=== PATIENT | female | born 1960 | race Caucasian/White ===

== ENCOUNTER 2025-06-15 13:26 | Outpatient (AMB) | payer OTHER, SELFPAY ==
--- NOTE | 2025-06-15 13:28 | A.OFFVIS_ITS ---
Intake Visit Reasons: follow up Allergies cefotetan Allergy (Unknown, Verified 06/15/25 13:33) Unknown Penicillins Allergy (Unknown, Verified 06/15/25 13:33) Unknown piperacillin Allergy (Unknown, Verified 06/15/25 13:33) Unknown sulfamethoxazole (From Bactrim) Allergy (Unknown, Verified 06/15/25 13:33) Unknown trimethoprim (From Bactrim) Allergy (Unknown, Verified 06/15/25 13:33) Unknown Medication List - Last Reconciled 06/15/25 by Erinn Mehta, SAKSHI alprazolam 0.5 mg PO duloxetine 60 mg PO DAILY gabapentin 100 mg PO BID gabapentin 600 mg PO BEDTIME levothyroxine 137 mcg PO DAILY nortriptyline 50 mg PO BEDTIME primidone 50 mg PO BID 90 days HPI Comments Details: She was concerned that cognition was not as sharp. She started to notice some decline around 2019, but has worsened over the last 9 months. She lives alone in apartment. In the last few months, there have been times when she left the stove on, left the oven on, left the faucet on, and left her car running. She also feels like her gait is more off lately and notices that she lists from one side to another, but no falls. 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 No work performance issues noted, but will sometimes forget what someone says and needs them to repeat. She started using CPAP few months ago, sleep okay. Some anxiety, and may be more anxious related to memory concerns. Tremor was okay with primidone, can be worse when anxious. No functional impairment. No difficulty eating, drinking, or swallowing. Has not used alcohol since 11/2017. She has bachelor's degree in social work. She has family history of dementia in maternal aunt, and both paternal grandparents. Both her parents passed in early 60s. She has history of heavy alcohol use, stopped in 11/2017. She has a 20+ year history of tremors in her hands that had slowly gotten worse beginning around 2018 and were causing some functional impairment in eating, typing, and writing. There is no family history of tremor. If she is really worked up and nervous it is worse. She has some mild movements and trouble getting words out. Her symptoms increase with stress and caffeine. She has stopped all caffeine intake. She sleeps about 7 hours a day. Around 2016, she was seen in [place] and prescribed propranolol for a short period of time, dose unknown but, did not see any benefit. [facility] Medical History (Updated 06/15/25 @ 13:51 by Erinn Mehta CNP) Fibromyalgia Hypothyroidism PTSD (post-traumatic stress disorder) Depression Anxiety Benign essential tremor Family History (Updated 06/15/25 @ 13:52 by Erinn Mehta CNP) Maternal Aunt Dementia Paternal Grandfather Dementia Paternal Grandmother Dementia Review of Systems Const Denies chills, Denies daytime sleepiness, Denies difficulty sleeping, Denies fatigue, Denies fever(s), Denies frequent falls, Reports headache(s), Denies increased appetite, Denies poor appetite, Denies snoring, Denies weakness, Denies weight gain and Denies weight loss Eyes Denies loss of vision ENT Denies vertigo, Denies dizziness, Reports headache(s) and Denies neck pain Card Denies chest pain at rest, Denies chest pain with activity, Denies syncope, Denies leg edema, Reports palpitations, Denies dyspnea and Denies dyspnea on exertion Resp Denies cough, Denies dyspnea, Denies dyspnea on exertion and Denies snoring GI Denies abdominal pain, Denies constipation, Reports heartburn, Denies diarrhea and Denies nausea Denies urinary frequency, Denies urinary incontinence and Denies urinary urgency Musc Denies abnormal gait, Denies back pain, Denies myalgias, Denies arthralgias, Denies neck pain, Denies numbness and Denies tingling Neuro Denies abnormal gait, Denies vertigo, Denies dizziness, Denies syncope, Denies frequent falls, Reports headache(s), Denies lack of coordination, Denies loss of vision, Denies memory loss, Denies numbness, Denies Other visual disturbances, Denies restless legs, Denies seizure-like activity, Denies tingling, Denies paresthesias, Reports tremor(s) and Denies weakness Psych Reports anxiety, Denies depression, Denies auditory hallucinations, Denies memory loss and Denies visual hallucinations Endo Denies fatigue and Reports palpitations Physical Exam Const Other: General Appearance:? normal, in no acute distress. Heart:? S1, S2 normal, no murmurs. Lungs:? clear anteriorly and posteriorly. Musculoskeletal:? normal. Extremities:? no edema. Psych:? alert, as below. Neuro Other: Abnormal Neurological Findings:?Minimal tremor of the extended upper extremities mildly increased on FTN. MMSE 26/30 Mental Status: alert, as below. Cranial Nerves: Pupils are equal, round, and reactive to light. External ocular muscles are intact. Visual reece are full, no ptosis. Face is symmetrical, no facial weakness or droop. Facial sensations are normal. Tongue protrudes in midline. Palate elevates symmetrically. Shoulder shrugging is normal Motor Examination: Normal muscle tone, bulk and strength. No atrophy or fasciculations. No drift of the extended upper extremities. DTR 2+. Plantars are flexor. Sensory Exam: Normal light touch, temperature, pinprick, vibration, and joint- position sensations. Rhomberg sign is absent. Coordination: No ataxia. No titubation. Gait Exam: Within normal limits. Cerebellar Signs: Nzhruk-fi-hthe as above. Extrapyramidal System: Tremor as above. No rigidity with normal facial expressions. No bradykinesia. No bradyphrenia. Normal arm swing and posture. No propulsion or retropulsion. Speech: Normal. MMSE Level of Consciousness: Alert. Orientation: Knows correct year, month, date, day and season. Knows correct city, county and state. Knows correct location and floor. Registration: Able to register 3 objects. Attention: Serial 7's performed accurately to 79. Recall: Able to recall 1 out of 3 objects. Language: Normal spontaneous speech, fluency, repetition, naming, comprehension, reading, and writing. Total Score: 26/30. Results Reviewed Results Reviewed: Labs 05/2025 with PCP: TSH 0.32, RPR negative Labs 04/2025 with PCP: Vitamin B 12 and folate ok Assessment & Plan Assessment & Plan (1) Benign essential tremor: Code(s): G25.0 - Essential tremor Category: Medical Plan: Continue primidone 50mg 1 tablet twice a day. (2) MCI (mild cognitive impairment): Code(s): G31.84 - Mild cognitive impairment of uncertain or unknown etiology Category: Medical Plan: She had copy of recent labs done by PCP with her which were reviewed - vitamin B12 and folate were okay, TSH was low and levothyroxine dose was adjusted. She was interested in newer treatment available IV anti-amyloid treatment (Kisunla) if she was appropriate candidate for this treatment, at which time further education risks and benefits of medication will be discussed. Additional testing reviewed, and she was agreeable. * Cognitive testing (with MMSE and MoCA) - will schedule for later this week * Labs (TSH, vitamin B12 and folate, ABeta 42/40) * MRI brain ordered * PET brain beta amyloid ordered * EEG was also ordered Discussed option to start memantine, will hold off for now. Orders: Orders MR head/brain w con Today G3.84 - Mild cognitive impairment of uncertain or unknown etiology EEG Routine Today G3.84 - Mild cognitive impairment of uncertain or unknown etiology Vitamin B12 and Folate Today G3.84 - Mild cognitive impairment of uncertain or unknown etiology TSH reflex Free T4 Today G3.84 - Mild cognitive impairment of uncertain or unknown etiology ABeta 42/40 p-tau 217 Eval Today G3.84 - Mild cognitive impairment of uncertain or unknown etiology PET Brain beta amyloid Today Medications: Refilled primidone 50 mg PO BID 180 tabs 1RF 90 days Coding Level of Care Code Est Pt Level 4 (06346) Diagnoses Benign essential tremor G25.0 MCI (mild cognitive impairment) G3184
--- OUTSIDE RECORDS SUMMARY | 2025-06-15 22:11 | XMS_ITS | Encounter Summary ---
Author Organization [employer] Address [address] [facility] [address] [place] [address] Care Team Providers Care Test Evaluator Name Role Phone Myrna Sarmiento COMMERCIAL DIRECTOR Unavailable [phone] Juan M Haynes Primary Care Provider [phone] Encounter Details Date Type Department Care Team (Latest Contact Info) Description 04/17/2025 Results Follow-Up [facility] [address] [place] [phone] Adi Kelley AGNP [address] [place] [address] Iron, TIBC And Ferritin Panel, Comprehensive Metabolic Panel, CBC, Additional followed-up results: 2 Social History Tobacco Use Types Packs/Day Years Used Date Smoking Tobacco: Former Cigarettes 2 10 1 8 - 1987 Cigars Started: 02/26 24 Passive Smoke Exposure: Never Smokeless Tobacco: Never Alcohol Use Standard Drinks/Week Comments Never 0 (1 standard drink = 0.6 oz pure alcohol) hx/o etoh abuse, sober since 2019 Alcohol Answer Date Recorded How often do you have a drink containing alcohol ? 0 09/06/2023 How many drinks containing a lcohol do you have on a typical day when you are drinking? 0 09/06/2023 How often do you have six or more drinks on one occasion? 0 09/06/2023 Depression Answer Date Recorded Patient Health Questionnaire-9 Score 4 12/06/2023 Patient Health Questionnaire-9 Score 4 12/06/2023 Last PHQ-9: Questionnaire Data Not on file 0 12/06/2023 Housing Stability Answer Date Recorded What is your housing situation today? I have mickey collado 12/06/[address] you li ve. Do you have problems with any of the following? None of the above 12/06/2023 Food Insecurity Answer Date Recorded Within the past 12 months, y ou worried that your food would run out before you got money to buy more: Sometimes True 2024 Within the past 12 months,th e food you bought just didn't last and you didn't have enough money to get more: Never True 11/04/2024 Transportation Answer Date Recorded In the past 12 months, has l ack of transportation kept you from medical appts, meetings, work or from getting things needed for daily living? No 12/06/2023 Intimate Partner Violence Answer Date R ecorded Within the last year, have y ou been afraid of your partner or ex-partner? 2 09/06/2023 Within the last year, have y ou been humiliated or emotionally abused in other ways by your partner or ex-partner? 2 Within the last year, have y ou been kicked, hit, slapped, or otherwise physically hurt by your partner or ex-partner? 2 09/06/2023 Within the last year, have y ou been raped or forced to have any kind of sexual activity by your partner or ex-partner? 2 09/06/2023 Utilities Answer Date Recorded In the past 12 months, has t he electric, gas, oil or water company threatened to shut off services in your home? 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
--- OUTSIDE RECORDS SUMMARY | 2025-06-15 22:11 | XMS_ITS | Encounter Summary ---
Author Organization [employer] Address [address] [facility] [address] [place] [address] Care Team Providers Care Group Controller Name Role Phone SarmientoMyrna desai VISITING NURSE Unavailable [phone] Juan M Haynes Primary Care Provider [phone] Encounter Details Date Type Department Care Team (Late st Contact Info) Description 11/25/2024 Orders Only [facility] [address] [place] [address] Provider, Not In System Social History Tobacco Use Types Packs/Day Years Used Date Smoking Tobacco: Former Cigarettes 2 10 1 978 - 1987 Passive Smoke Exposure: Never Smokeless Tobacco: Never [...] the past 12 months, has t he [employer], gas, oil or water [employer] threatened to shut off services in your [...] 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 Not on file Not on file documented as of this encounter Plan of Treatment Not on file documented as of this encounter Procedures Procedure Name Priority Date/Time Associated Diagnosis Comments MAMMOGRAPHY Routine 11/21/2024 9:30 AM EDT documented in this encounter Results * Hm Mammography (11/21/2024 9:30 AM EDT) Anatomical Region Laterality Modality Other us Not In System Provider HEALTH MAINTENANCE Edited Result - Final documented in this encounter Visit Diagnoses Not on filedocumented in this encounter Additional Health Concerns Assessment Noted Time PHQ-9 Depression Total Score: 4 12/06/19 24 2:09 PM EDT documented as of this encounter Care Teams Group Controller Relationship Specialty Start Date End Date Juan M Haynes PA [address] [place] [address] PCP - General Family Medicine 09/04/22 Myrna Sarmiento FNP [address] [place] [address] Family Medicine 05/05/22 documented as of this encounter
--- OUTSIDE RECORDS SUMMARY | 2025-06-15 22:11 | XMS_ITS | Encounter Summary ---
Author Organization [employer] Address [address] [facility] [address] [place] [address] Care Team Providers Care Insurance Territory Manager Name Role Phone SarmientoMyrna desai YOGA INSTRUCTOR Unavailable [phone] Juan M Haynes Primary Care Provider [phone] Encounter Details Date Type Department Care Team (Late st Contact Info) Description 10/28/2024 Orders Only [facility] [address] [place] [address] Provider, Not In System Social History Tobacco [...] before you got money to buy more: Never True 12/06/2023 Within the past 12 months,th e food you bought just didn't last and you didn't have enough money to get more: Never True Transportation Answer Date Recorded In the past [...] the past 12 months, has t he [employer], gas, oil or water [employer] threatened to shut off services in your home? 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 Not on file Not on file documented as of this encounter Plan of Treatment Not on file documented as of this encounter Procedures Procedure Name Priority Date/Time Associated Diagnosis Comments BI MAMMOGRAM SCREENING TOMOSYNTHESIS BILATERAL Routine 11/21/2024 12:55 PM EDT PULMONARY FUNCTION TESTING Routine 10/16/2024 3:06 PM EDT documented in this encounter Results * BI Mammogram Screening Tomosynthesis Bilateral (11/21/2024 12:55 PM EDT) Anatomical Region Laterality Modality Breast Bilateral Mammography 11/21/2024 12:5 5 PM EDT Narrative 11/24/2024 5:42 PM EDT PROCEDURE: MM Digital Mammo Screening INDICATION: Screening. No known abnormalities. COMPARISON: Multiple priors TECHNIQUE: Full-field digital CC and MLO views of both breasts were obtained. Computer-aided detection (CAD) was utilized in the interpretation of this study. Bilateral tomosynthesis views were obtained. DENSITY: There are scattered areas of fibroglandular density. FINDINGS: No suspicious masses, suspicious microcalcifications, or areas of architectural distortion to suggest malignancy. IMPRESSION: No mammographic evidence of malignancy. RECOMMENDATION: Annual mammographic screening BI-RADS: 2 (Benign) Lay letter mailed to patient WSN: [id number] Ordering Physician: Juan M Haynes Dictated By: Jessica Bernard MD Dictated Date/Time: 11/24/24 5:38 pm Reviewed By: Jessica Bernard MD Signed By: Jessica Bernard MD Signed Date/Time: 11/24/24 5:38 pm Transcribed By: JEANNINE Learning Development Specialist Date/Time: 11/24/24 5:35 pm Birads: Procedure Note Wili, Image - 11/24/2024 PROCEDURE: MM Digital Mammo Screening INDICATION: Screening. No known abnormalities. COMPARISON: Multiple priors TECHNIQUE: Full-field digital CC and MLO views of both breasts wereobtained. Computer-aided detection (CAD) was utilized in the interpretation of thisstudy. Bilateral tomosynthesis views were obtained. DENSITY: There are scattered areas of fibroglandular density. FINDINGS: No suspicious masses, suspicious microcalcifications, or areasof architectural distortion to suggest malignancy. IMPRESSION: No mammographic evidence of malignancy. RECOMMENDATION: Annual mammographic screening BI-RADS: 2 (Benign) Lay letter mailed to patient WSN: [id number] Ordering Physician: Juan M Haynes Dictated By: Jessica Bernard MD Dictated Date/Time: 11/24/24 5:38 pm Reviewed By: Jessica Bernard MD Signed By: Marco Antonio MD, Lopez Cassandra Signed Date/Time: 11/24/24 5:38 pm Transcribed By: CSB Learning Development Specialist Date/Time: 11/24/24 5:35 pm Birads: us Juan M MORRISON IMG BI PROCEDURES Final Result * Pulmonary function testing (10/16/2024 3:06 PM EDT) us Not In System Provider PFT ORDERABLES Edited Re sult - Final documented in this encounter Visit Diagnoses Not on filedocumented in this encounter Additional Health Concerns Assessment Noted Time PHQ-9 Depression Total Score: 4 12/06/19 24 2:09 PM EDT documented as of this encounter Care Teams Insurance Territory Manager Relationship Specialty Start Date End Date Juan M Haynes PA [address] [place] [address] PCP - General Family Medicine 09/04/22 Myrna Sarmiento FNP [address] [place] [id number] Family Medicine 05/05/22 documented as of this encounter
--- OUTSIDE RECORDS SUMMARY | 2025-06-15 22:11 | XMS_ITS | Clinical Summary ---
Author Organization [facility] Address [facility] [place] [address] Care Team Providers Care Peanut Roaster Name Role Phone Unknown Primary Care Provider Unavailabl e Allergies Active Allergy Reactions Criticality Noted Date Comments Cefotetan Hives High 05/29/2012 CIS - RASH Cefotetan Disodium High CIS - rash (unspecified) Cis Free Text Allergy PIP/TAZO-RASH. Cis Free Text Allergy TOLERATINE MORPHINE. Garlic Low CIS - Hives Gloves, Latex High Latex Rash High 05/29/2012 Latex Dams High Morphine Piperacillin Piperacillin Sodium High CIS - Rash, peticea Piperazine (Bulk) Hives High 05/29/2012 Sulfamethoxazole-Trimethopr im Itching,Rash 11/21/2013 Other reaction(s): other Tazobactam Tazobactam Sodium High CIS - Rash, peticea Medications MULTIVITAMIN (DAILY MULTIPLE ORAL) 6 Active cyanocobalamin (VITAMIN B-12) 500 mcg tablet 6 Active ibuprofen (ADVIL;MOTRIN) 800 mg tablet 800mg, PO, Three times daily,PRN 6 Active Lactobacillus Acidophilus 1 billion cell Tablet Take 2 tablets by mouth daily. Active ferrous gluconate (FERGON) 324 mg (38 mg iron) Tablet Take 1 tablet by mouth Daily. 8 Active Calcium Carbonate 600 mg calcium (1,500 mg) Tablet Take 2 tablets by mouth daily. Active clobetasol (TEMOVATE) 0.05 % Cream Apply topically 2 times daily. 30 g 1 8 Active Additional Information Patient not taking.Reported on 05/15/2018 sertraline (ZOLOFT) 50 mg Tablet Take 1 tablet by mouth daily. 90 tablet 3 8 Active DULoxetine (CYMBALTA) 60 mg Capsule, Delayed Release(E.C.)Ind ications:Fibromy algia TAKE ONE CAPSULE BY MOUTH DAILY 90 capsule 1 8 Active nortriptyline (PAMELOR) 10 mg CapsuleIndicatio ns:Fibromyalgia TAKE ONE CAPSULE BY MOUTH EVERY NIGHT AT BEDTIME 90 capsule 3 8 Active ALPRAZolam (XANAX) 0.5 mg TabletIndication s:Anxiety Take 1 tablet by mouth every 8 hours as needed. 30 tablet 8 Active levothyroxine (SYNTHROID) 150 mcg TabletIndication s:Hypothyroidism , unspecified type TAKE ONE TABLET BY MOUTH EVERY DAY 90 tablet 9 Active atenolol (TENORMIN) 50 mg TabletIndication s:Hypertension, unspecified type TAKE ONE-HALF TABLET BY MOUTH TWICE DAILY 90 tablet 9 Active gabapentin (NEURONTIN) 300 mg Capsule TAKE 1 CAPSULE BY MOUTH AT BEDTIME 90 capsule 9 Active Active Problems Problem Noted Date Diagnosed Date Essential hypertension 2017 Fibromyalgia 2017 Hypothyroidism 2017 Malabsorption syndrome 2017 Prediabetes 2017 Exfoliative dermatitis 02/19/2017 Anxiety 11/03/2016 Esophageal reflux 06/22/2015 Insomnia 02/12/2015 Breast cancer screening, high risk patient 06/18 Overview (07/26/2017): Comments: danial chen version 7 lifetime risk 22.6% Incisional hernia 07/02/2011 Hearing loss 09/07/2010 Dyshidrosis 01/11/2009 Resolved Problems Problem Noted Date Diagnosed Date Resolved Date Dysuria 11/01/2017 05/15/2018 Immunizations Immunization Administration Dates Next Due Hepatitis B Adult (Engerix-B , Recombivax) 04/01/1997,10/28/1996,09/26/1996 Influenza (Novel [id number]) Injectable 05/11/2009 Influenza Quadrivalent, Pres ervative Free 03/29/2018 Influenza Unspecified Formulation 2016,04/26/2015,05/09/2014,2012,04/20/2011,03/23/2010,03/23/2009,1 07/12/2001 Td Adult (Decavac, Tenivac) 03/29/2018 Tdap (Adacel, Boostrix) 02/25/2008 Tuberculin Skin Test, PPD 03/09/1997 Family History Medical History Relation Comments Breast Cancer Mother Relation Status Comments Mother Social History Tobacco Use Types Packs/Day Years Used Date Smoking Tobacco: Former Cigarettes Q uit: 02/28/1988 Smokeless Tobacco: Never Alcohol Use Standard Drinks/Week Comments Yes 0 (1 standard drink = 0.6 oz pur e alcohol) ocassional Comments No Sex and Gender Information Value Date Recorded Sex Assigned at Not on file Legal Sex Female 6:17 AM EST Gender Identity Not on file Sexual Orientation Not on file Last Filed Vital Signs Vital Sign Reading Time Taken Comments Blood Pressure 130/88 05/15/2018 3:23 PM EST Pulse 56 05/15/2018 3:23 PM EST Temperature 35.8 C (96.5 F) 05/15/2018 3:23 PM EST Respiratory Rate 16 03/10/2014 2:23 PM EDT Oxygen Saturation 97% 05/15/2018 3:23 PM EST Inhaled Oxygen Concentration - - Weight 109.3 kg (241 lb) 03/29/2018 4:48 PM EDT Height 162.6 cm (5' 4 ) 11/06/2017 2:56 PM EDT Body Mass Index 41.37 11/06/2017 2:56 PM EDT Plan of Treatment Health Maintenance Due Date Last Done Comments CT Colonography 1962 FIT DNA 1962 FIT 1962 Sigmoidoscopy (10 year) with FIT yearly 1962 Sigmoidoscopy 1962 HIV screen 1980 Hepatitis C Screening 1980 Lipid Screening 1980 HPV test 1992 Breast Cancer Share Decision Needed 2002 Pneumoccocal Vaccine: 50+ (1 of 1 - PCV) 2012 Zoster vaccine (1 of 2) 2012 Pre-DM monitoring (HgbA1C or FBG) 08/04/2017 08/04/2016, 08/04/2016, 10/04/2015, Additional history exists Breast Cancer screening 08/10/2019 08/10/19 18, 07/24/2016, 06/22/2015, Additional history exists PAP Smear 06/22/2020 06/22/2015, 04/20/2011 Covid-19 Vaccine (1 - 2024-2 6 season) 2025 Influenza (Flu) vaccine (1 o f 1 - Influenza standard series) 03/09/2025 03/29/2018, 04/27/2017, 04/26/2015, Additional history exists Colonoscopy 09/19/2025 09/20/2015 Colorectal Cancer Screening 09/19/2025 Tetanus/Diphtheria/Pertussis Vaccines (3 - Td or Tdap) 03/29/2028 03/29/2018, 02/25/2008 Procedures Procedure Name Priority Date/Time Associated Diagnosis Comments MAMMO SCREENING CAD AND KEO BILATERAL Routine 08/10/2017 12:19 PM EST Encounter for breast cancer screening other than mammogram CMP (LUCIA CONVERSION) Routine 08/04/2016 3:57 PM EST EXTERNAL COLONOSCOPY RESULT Routine 09/20/2015 9:00 AM EDT EXTERNAL PAP SMEAR RESULT PANEL Routine 06/22/2015 2:22 PM EST from Last 3 Months or Most Recently Relevant to Health Maintenance Results * Mammo Screen CAD and Keo Bilat (Generic) (08/10/2017 12:19 PM EST) Anatomical Region Laterality Modality Breast Bilateral Mammography Impressions 08/10/2017 4:44 PM EST Normal mammogram. No evidence for malignancy. Routine mammographic screening is recommended. BIRADS Category 1: Negative Narrative 08/10/2017 4:44 PM EST EXAMINATION: MAMMO DIGITAL BILATERAL SCREENING WITH CAD AND TOMOSYNTHESIS CLINICAL HISTORY: routine TECHNIQUE: CC and MLO projections as well as tomography were reviewed. The films were also reviewed with the [employer] Computer Aided Detection System (Version 10.0). COMPARISON: None FINDINGS: The breasts are symmetric in size and are of predominately fatty density. I see no suspicious masses or microcalcifications to suggest malignancy. us Brook Monahan MD IMG MAMMO ORDERABLES Final Res ult * (ABNORMAL) CMP (Lucia conversion) (08/04/2016 3:57 PM EST) Est Glomerular Filtration Rate >60(Exte rnal Lab) ml/min/1.73m2 [facility] Comment: Sourced from [employer] Conversion Albumin 4.1(Exte rnal Lab) 3.5 - 5.2 g/dl [facility] Comment: Sourced from [employer] Conversion Alkaline Phosphatase 66(Exter nal Lab) 35 - 104 international units per liter [facility] Comment: Sourced from Lucia Duck Conversion Alanine Aminotransferase 17(Exter nal Lab) <33 international units per liter [facility] Comment: Sourced from [employer] Conversion Aspartate Aminotransferase 17(Exter nal Lab) <32 international units per liter [facility] Comment: Sourced from [employer] Conversion Blood Urea Nitrogen 20(Exter nal Lab) 6 - 20 mg/dl [facility] Comment: Sourced from Lucia Duck Conversion Calcium 9.4(Exte rnal Lab) 8.6 - 10.2 mg/dl [facility] Comment: Sourced from [employer] Duck Conversion CKD Stage NL, 1or2(Ext ernal Lab) [facility] Comment: Sourced from [employer] Conversion Chloride 98(Exter nal Lab) 98 - 107 mmol/L [facility] Comment: Sourced from Lucia Duck Conversion Carbon Dioxide 28(Exter nal Lab) 21 - 32 mmol/L [facility] Comment: Sourced from Lucia Nabila Conversion Creatinine 0.6(EXTE RNAL/ABN ) 0.7 - 1.2 mg/dl [facility] Comment: Sourced from Lucia Duck Conversion Anion Gap 14(Exter nal Lab) 8 - 16 mmol/L [facility] Comment: Sourced from [employer] Conversion Glucose Fasting 96(Exter nal Lab) 70 - 100 mg/dl [facility] Comment: Sourced from [employer] Conversion Potassium 4.3(Exte rnal Lab) 3.3 - 5.1 mmol/L [facility] Comment: Sourced from [employer] Conversion Sodium 140(Exte rnal Lab) 136 - 145 mmol/L [facility] Comment: Sourced from [employer] Conversion Bilirubin, Total 0.2(Exte rnal Lab) <1.2 mg/dl [facility] Comment: Sourced from [employer]abil[employer] Conversion Protein, Total 6.6(Exte rnal Lab) 6.6 - 8.7 g/dl [facility] Comment: Sourced from [employer] Conversion 08/04/2016 3:57 PM EST us His Nabila Provider CHEMISTRY ORDERABLES Final Result Performing Organization Address [facility] Co de Phone Number [facility] * (ABNORMAL) External Colonoscopy (09/20/2015 9:00 AM EDT) External Colonoscopy 09/20/2015 9:00:00 AM - See Meta[employer] system for full report(Externa l Lab) [facility] Comment:Sourced from [employer] [employer] Duck Conversion 09/20/2015 9:00 AM EDT us His Nabila Provider EXTERNAL GI PROCEDURE RESU LT Final Result Performing Organization Address [facility]/ZIP Co de Phone Number [facility] RESULT CONVERSION * (ABNORMAL) External Pap Smear (06/22/2015 2:22 PM EST) External PAP Smear 06/22/2015 2:22:00 PM; See Metaforic system for full report(Externa l Lab) [facility] Comment: Sourced from [employer] Conversion 06/22/2015 2:22 PM EST us His Nabila Provider EXTERNAL LAB ORDERABLES Fi nal Result Performing Organization Address City/[facility]/ZIP Co de Phone Number [facility] RESULT CONVERSION from Last 3 Months or Most Recently Relevant to Health Maintenance Insurance MVP Advance Directives Documents on File Type Date 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
--- OUTSIDE RECORDS SUMMARY | 2025-06-15 22:11 | XMS_ITS | Encounter Summary ---
Author Organization [employer] Address [address] [place] [address] Care Team Providers Care Lisw Name Role Phone Myrna Sarmiento ASE MASTER MECHANIC Unavailable [phone] Juan M Haynes Primary Care Provider [phone] Reason for Visit * Reason Comments Med Change Request Encounter Details Date Type Department Care Team ([facility] Contact Info) Description 05/06/[address] [facility] [address] [place] [address] Laureen Perez NP [address] [place], [place] [id number] Social History Tobacco Use Types Packs/Day Years Used Date Smoking Tobacco: Former Cigarettes 2 1987 Cigars Started: 02/26 24 Passive Smoke [...] is your housing situation today? 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 Not on file Not on file documented as of this encounter Miscellaneous Notes * Telephone Encounter - Indu Membreno [place] - 05/18/2025 9:19 AM EST Not covered by insurance documented in this encounter Plan of Treatment Not on file documented as of this encounter Visit Diagnoses Not on filedocumented in this encounter Additional Health Concerns Assessment Noted Time PHQ-9 Depression Total Score: 4 12/06/19 24 2:09 PM EDT documented as of this encounter Care Teams Lisw Relationship Specialty Start Date End Date Juan M Haynes PA [address] [place] [address] PCP - General Family Medicine 09/04/22 Myrna Sarmiento FNP [address] [place] [address] Family Medicine 05/05/22 documented as of this encounter
--- OUTSIDE RECORDS SUMMARY | 2025-06-15 22:11 | XMS_ITS | Encounter Summary ---
Author Organization [employer] Address [address] [facility] [address] [place] [address] Care Team Providers Care Team Assembly Line Machine Operator Name Role Phone Myrna Sarmiento [facility] Unavailable [phone] Juan M Haynes Primary Care Provider [phone] Encounter Details Date Type Department Care Team (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
--- OUTSIDE RECORDS SUMMARY | 2025-06-15 22:11 | XMS_ITS | Encounter Summary ---
Author Organization [employer] Address [address] [facility] [address] [place] [address] Care Team Providers Care Channel Executive Name Role Phone Myrna Sarmiento [facility] Unavailable [phone] Juan M Haynes Primary Care Provider [phone] Reason for Visit * Reason Onset Date Comments Med Refill 06/14/2025 Encounter Details Date Type Department Care Team (Late st Contact Info) Description 06/13/2025 Refill [facility][1] [address] [place] [phone] Uyen Tolbert [facility] [address] [place], [place] [phone] Anxiety Social History Tobacco Use Types Packs/Day Years Used Date Smoking Tobacco: Former Cigarettes 2 10 1 978 - 1987 Cigars Started: 02/26 24 Passive [...] your housing situation today? 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 Comments: documented in this encounter Plan of Treatment Not on file documented as of this encounter Visit Diagnoses Diagnosis Anxiety Anxiety state, unspecified documented in this encounter Additional Health Concerns Assessment Noted Time PHQ-9 Depression Total Score: 4 12/06/19 24 2:09 PM EDT documented as of this encounter Care Teams Channel Executive Relationship Specialty Start Date End Date Juan M Haynes PA [address] [place] [address] PCP - General Family Medicine 09/04/22 Myrna Sarmiento FNP [address] [place] [address] Family Medicine 05/05/22 documented as of this encounter
--- OUTSIDE RECORDS SUMMARY | 2025-06-15 22:11 | XMS_ITS | Clinical Summary ---
Author Organization [employer] Address [address] [place] [address] Care Team Providers Care Rubber Compounder Name Role Phone Myrna Sarmiento OBSERVATION NURSE Unavailable [phone] Juan M Haynes Primary Care Provider [phone] Allergies Active Allergy Reactions Criticality Noted Date Comments Cefotetan Anaphylaxis,Hives,Ra s h High 05/29/2012 Other reaction(s): Anaphelaxis CIS - rash (unspecified) CIS - RASH Garlic Hives Medium 02/04/2019 CIS - Hives Latex High 09/04/2022 Morphine 04/02/2023 Piperacillin Anaphylaxis High 09/16/2018 CIS - Rash, peticea Piperacillin-Tazobactam In Dex 09/16/2018 Piperazine Hives High 05/29/2012 Sulfamethoxazole-Trimet hoprim Hives,Itching,Rash Medium 11/21/2013 Other reaction(s): other Tazobactam High 04/02/2023 CIS - Rash, peticea Medications * This document contains information received from the source organization and may not represent a complete record from that organization. Lactobacillus (Acidophilus Probiotic) 10 MG capsule in the morning. 02/05/20 19 Active primidone (Mysoline) 50 MG tablet 11/06/19 24 Active docusate sodium (Colace) 100 MG capsule Take 1 capsule (100 mg) by mouth 2 times daily. 180 capsule 3 03/27/20 25 Active DULoxetine (Cymbalta) [address] capsuleIndicat ions:Fibromyal diana Take 1 capsule (60 mg) by mouth Once per day. Do not crush or chew. 90 capsule 3 03/27/20 25 2025 Active gabapentin (Neurontin) 100 MG capsuleIndicat ions:Fibromyal diana TAKE ONE CAPSULE BY MOUTH EVERY MORNING AND IN THE AFTERNOON. 180 capsule 03/27/20 Active nortriptyline (Pamelor) 50 MG capsuleIndicat ions:Fibromyal diana Take 1 capsule (50 mg) by mouth at bedtime. 90 capsule 3 03/27/20 25 2025 Active omeprazole (PriLOSEC) [address] capsuleIndicat ions:Gastroeso phageal reflux disease without esophagitis Take 1 capsule (40 mg) by mouth before breakfast. 90 capsule 3 04/02/20 Active ALPRAZolam (Xanax) 0.5 MG tabletIndicati ons:Anxiety Take 1 tablet (0.5 mg) by mouth if needed in the morning and at bedtime for anxiety. 56 tablet 05/06/20 Active fluticasone (Flonase) 50 MCG/ACT nasal sprayIndicatio ns:Allergic rhinitis, unspecified seasonality, unspecified trigger Administer 1 spray into each nostril 2 times daily. Shake gently. Before first use, prime pump. After use, clean tip and replace cap. 16 g 2 05/06/20 Active Estrogens Conjugated 0.625 MG/GM cream See Instructions, apply a marble sized amount of cream twice weekly sunday and sunday to vaginal opening, # 30 Gm, 3 Refills, Maintenance, 04/15/25 4:48:00 PM EDT, [facility]/pharmacy #[id number], Partial fill upon patient request if the prescription is for a schedule II opioid drug., apply a marble sized amount of cream twice weekly sunday and sunday to vaginal opening, 163, cm, 04/15/25 16:13:00 EDT, Height, 93, kg, 04/15/25 16:13:00 EDT, Dry Weight 04/15/20 Active levothyroxine (Synthroid, Levoxyl) 137 MCG tabletIndicati ons:Hypothyroi dism, unspecified type Take 137 mcg by mouth before breakfast. 30 tablet 2 05/29/20 Active gabapentin (Neurontin) 300 MG capsuleIndicat ions:Anxiety Take 2 capsules (600 mg) by mouth at bedtime. 180 capsule 06/15/20 25 2025 Active gabapentin (Neurontin) 300 MG capsuleIndicat ions:Anxiety Take 2 capsules (600 mg) by mouth at bedtime. 180 capsule 03/18/20 25 2024 Discontinued(R eorder (will not trigger notification to Pharmacy)) levothyroxine (Synthroid, Levoxyl) 150 MCG tablet TAKE 1 TABLET BY MOUTH EVERY DAY IN THE MORNING ON AN EMPTY STOMACH 90 tablet 3 03/27/20 25 2024 Discontinued(R eorder (will not trigger notification to Pharmacy)) doxycycline (Vibra-Tabs) 100 MG tabletIndicati ons:Cutaneous abscess of buttock Take 1 tablet (100 mg) by mouth 2 times daily for 7 days. Take with a full glass of water and do not lie down for at least 30 minutes after. 14 tablet 05/13/20 25 2024 Active Problems Problem Noted Date Diagnosed Date PATEL (obstructive sleep apnea) 11/04/2024 Assessment & Plan (03/30/2025 7:43 AM EDT): PATEL managed with CPAP at night, no longer requiring supplemental oxygen. Improvement in alertness and reduction in brain fog since using CPAP. - Continue CPAP therapy at night. Monitor for ongoing fatigue. Assessment & Plan (11/04/2024 11:28 AM EDT): 10/2024 HST with moderate PATEL w/ hypoxia. Pt already in contact with Dr. Jaeger and awaiting machine to begin treatment. Continue to monitor. Hx of acute respiratory failure 08/28/2024 Assessment & Plan (09/04/2024 2:01 PM EST): Hx/o acute respiratory failure. Pt remains in stable condition. Continue nocturnal O2 therapy. Attend sleep med appt 09/24. F/u pulmonology on 10/07. Continue to monitor. Assessment & Plan (08/28/2024 12:46 PM EST): 64F overall clinically well now 6 days s/p hospital admission 08/16/24 - 08/22/24 for acute hypoxic respiratory failure secondary to suspected pneumonia. Persistent SANCHES and nocturnal desaturation though reassuringly unremarkable exam today. Referral to respiratory therapy to help with acute recovery. F/u pulmonology as planned on 10/07/24. Sleep med 11/17/24 - will call and advocate for sooner appt due to refractory desat despite nocturnal O2 therapy. In interim continue 3L nocturnal O2 an close monitoring. Repeat CXR in 4-6 weeks; order placed. F/u in 1 week. Abnormal chest x-ray 08/28/2024 Skin lesion of face 09/06/2023 Assessment & Plan (09/06/2023 5:43 PM EST): 63F with skin lesion of face, appears most consistent with benign cyst, referring for further eval/ management. Tremor of hands and face 09/06/2023 Assessment & Plan (12/06/2023 2:31 PM EDT): Clinically improving with primidone. Continue to follow with specialist and continue to monitor. Assessment & Plan (09/06/2023 5:43 PM EST): 63F with chronic progressive bilateral intention tremor of hands and mouth twitching. Neuro referral placed for further eval/ management. Iron deficiency 10/18/2022 Assessment & Plan (03/30/2025 7:43 AM EDT): Iron deficiency under management with daily iron and vitamin C supplementation. Hematology follow-up scheduled for April. - Continue iron and vitamin C supplementation. Open orders for iron levels, blood count, B12, and folic acid; advised to complete labs at convenience. Results to be shared with hematology. Assessment & Plan (05/09/2024 10:07 AM EDT): Ongoing iron deficiency and chronic fatigue unresponsive to p.o. replenishment. Will consult with MDs in our practice to clarify process for ordering IV iron and then follow-up with patient. Assessment & Plan (12/06/2023 2:31 PM EDT): Stable. Follow up with hematology as planned and continue to monitor. Assessment & Plan (09/06/2023 5:42 PM EST): 63F with hx/o gastric bypass with chronic fe-deficiency refractory to PO supplementation. Hematology referral placed to eval for consideration of IV iron. Assessment & Plan (10/18/2022 9:35 AM EDT): Continue with iron supplementation. Repeat labs prior to next visit. She is up-to-date on colon cancer screening with next colonoscopy due in 2025. Refer sooner if no resolution of anemia despite supplementation or development of any signs/symptoms of GI blood loss. Vitamin D deficiency 07/22/2019 Atrial fibrillation (CMS/HCC) 02/06/2019 Overview (01/31/2023): One episode in 20's, had been on atenolol ever since, no recurrent episodes. Had repeat eval by cardiology in 2022- echo, event monitor, ekg, all reassuring, only finding was rare brief PSVT's. Shared decision between pt and cardiology to dc atenolol and f/u prn basis. Continue to monitor. Assessment & Plan (09/05/2022 8:03 PM EST): Stable. Asymptomatic and clinically well-appearing. Upcoming appt with cardiology to discuss whether BB still necessary. Fibromyalgia 2017 Assessment & Plan (05/26/2025 7:11 AM EST): Fibromyalgia is the likely umbrella cause for ongoing fatigue, pain, gait instability, and anxiety. Symptoms refractory to current regimen of nortriptyline, duloxetine, and gabapentin. Medication side effects and uncontrolled anxiety may contribute to symptom burden. - Discussed possibility of adjusting medication regimen, including switching gabapentin to pregabalin or increasing nortriptyline dose. Offered referral to psychiatric prescriber for medication review and anxiety management. Patient elected to defer medication changes and psychiatric consult at this time. Continue current regimen. Advised to document symptoms for future reference. Assessment & Plan (03/30/2025 7:43 AM EDT): Fibromyalgia managed with duloxetine, gabapentin, and nortriptyline. Symptoms have increased slightly in recent months but remain manageable. - Continue duloxetine 60 mg, gabapentin (300 mg at bedtime and 100 mg twice daily), and nortriptyline 50 mg. Monitor symptom control and report if symptoms become unmanageable. Orders: DULoxetine (Cymbalta) [address] capsule; Take 1 capsule (60 mg) by mouth Once per day. Do not crush or chew. gabapentin (Neurontin) 100 MG capsule; TAKE ONE CAPSULE BY MOUTH EVERY MORNING AND IN THE AFTERNOON. nortriptyline (Pamelor) 50 MG capsule; Take 1 capsule (50 mg) by mouth at bedtime. Assessment & Plan (09/06/2023 5:41 PM EST): Stable. Clinically benefiting from current med regimen, taking as prescribed and tolerating well with no side effects. Continue as is and will continue to monitor. Assessment & Plan (05/18/2023 5:07 PM EST): Significant symptomatic improvement with addition of 100 mg gabapentin doses each morning and afternoon (in addition to 600 mg nightly dose). Continue current regimen and continue to monitor. Return again for follow-up in 3 months or sooner as needed. Assessment & Plan (04/02/2023 10:22 AM EDT): Adding gabapentin 100 mg each morning and afternoon for hopeful benefit towards anxiety. continue gabapentin 600 mg nightly. Follow-up again in 6 months on effect/tolerability and continue dose titration as needed. Assessment & Plan (01/31/2023 1:39 PM EDT): Some refractory symptoms of anxiety, depression, insomnia, w/ possible relation to fibromyalgia. Increasing nortriptyline to 50mg via shared decision-making for hopeful multiple benefits. F/u again in 6 wks to monitor effect/tolerability. Assessment & Plan (10/18/2022 9:34 AM EDT): Excellent effect from nortriptyline increased to 25 mg, tolerating well with no adverse effects. Continue to monitor. Hypothyroidism 2017 Assessment & Plan (05/26/2025 7:11 AM EST): Hypothyroidism may contribute to fatigue and cold intolerance. Thyroid function to be reassessed to ensure appropriate levothyroxine dosing. - Ordered thyroid function tests. Orders: TSH with Reflex to Free T4; Future Assessment & Plan (03/30/2025 7:43 AM EDT): Hypothyroidism managed with levothyroxine 150 mcg. TSH checked 7 months ago and was normal. - Continue levothyroxine 150 mcg daily. Assessment & Plan (01/31/2023 1:39 PM EDT): Due for repeat monitoring labs. Obtain and dose-adjust med if needed. Malabsorption syndrome 2017 Overview (09/04/2022): S/p jeremy-en-y gastric bypass in 2000 Assessment & Plan (09/05/2022 8:13 PM EST): Stable. Continue supplementation. Repeating monitoring labs. Anxiety 11/03/2016 Assessment & Plan (03/30/2025 7:43 AM EDT): Stable anxiety disorder. Clinically benefiting from current med regimen that includes alprazolam 0.5mg up to bid prn, taking as prescribed and tolerating well with no side effects. No reason to suspect misuse/diversion at this time. Obtained updated drug screen today. Assessment & Plan (11/04/2024 11:28 AM EDT): Stable anxiety disorder. Clinically benefiting from current med regimen that includes alprazolam 0.5mg up to bid prn, taking as prescribed and tolerating well with no side effects. No reason to suspect misuse/diversion at this time. Obtained updated drug screen and med contract today. Assessment & Plan (05/09/2024 10:07 AM EDT): Stable. Clinically benefiting from current med regimen that includes alprazolam 0.5mg up to bid prn, taking as prescribed and tolerating well with no side effects. No reason to suspect misuse/diversion or that patient is being misleading despite negative drug screens. Obtaining additional today and will follow-up with results. Assessment & Plan (03/21/2024 11:28 AM EDT): Stable. Clinically benefiting from current med regimen that includes alprazolam 0.5mg up to bid prn, taking as prescribed and tolerating well with no side effects. Continue as is and will continue to monitor. Obtained updated tox screen today. No concern for misuse/diversion at this time. Assessment & Plan (12/06/2023 2:31 PM EDT): Stable. Clinically benefiting from current med regimen, taking as prescribed and tolerating well with no side effects. Continue as is and will continue to monitor. Obtain updated tox screen at next visit in 3 months. Assessment & Plan (09/06/2023 5:43 PM EST): Stable. Clinically benefiting from current med regimen, taking as prescribed and tolerating well with no side effects. Continue as is and will continue to monitor. Obtained updated med contract and tox screen today. Assessment & Plan (04/02/2023 10:22 AM EDT): Clinically benefiting from current med regimen, taking as prescribed and tolerating well with no side effects. Adding additional gabapentin doses as noted above. Otherwise we will continue current regimen. Follow-up again in 6 weeks. Continue behavioral therapy. Assessment & Plan (02/17/2023 1:55 AM EDT): Continue nortriptyline 50mg. Increasing frequency of use of xanax from 0.5mg daily prn to BID prn given current situational acute stressors and the need for further symptom control - sent 7 day supply given technically new controlled substance script. Pt to call or portal in when nearing end of supply to provide report on effect/tolerability. If well-tolerated and good effect then can refill 28d supply at that time. Will see her back for f/u appt in 4-6 wks. Assessment & Plan (01/31/2023 1:41 PM EDT): Some refractory symptoms off atenolol. Increasing nortriptyline as noted above and placed BH referral for possible family therapy. Otherwise continue same med regimen. Obtained repeat tox screen today for xanax use - no concern for misuse/diversion at this time. Pt taking appropriately as prescribed. Assessment & Plan (10/18/2022 9:35 AM EDT): Stable on nortriptyline 25 mg, duloxetine 60 mg, and Xanax. Tolerated sertraline discontinuation well. Benefiting from current med regimen with no adverse effects. Will return in 3 months for regular follow-up and repeat tox screen. Assessment & Plan (09/05/2022 8:06 PM EST): Refilled xanax and obtained updated med contract. Will obtain tox screen at future visit. No concerns for misuse/diversion at this time. Downtitrating sertraline to discontinuation (next 50mg for 2 wks) and increasing nortriptyline (from 10mg to 25mg) via shared decision-making for waning efficacy of sertraline and potential for improved efficacy w/ increased dose of nortriptyline towards anxiety, fibromyalgia, and insomnia. Reviewed anticholinergic s/e profile w/ monitoring precautions provided. Gastroesophageal reflux disease without esophagi tis 06/22/2015 Assessment & Plan (03/30/2025 7:43 AM EDT): GERD managed with omeprazole 40 mg twice daily. famotidine discontinued due to lack of efficacy. - Continue omeprazole 40 mg twice daily. Discontinued famotidine. Use Pepto- Bismol as needed for breakthrough symptoms. Orders: omeprazole (PriLOSEC) [address] capsule; Take 1 capsule (40 mg) by mouth before breakfast and before evening meal. Do not crush or chew. Assessment & Plan (09/04/2024 2:00 PM EST): Stable refractory GERD on omeprazole 40mg BID. Continue famotidine 20mg up to BID prn. Continue to monitor. Assessment & Plan (08/28/2024 12:38 PM EST): 2 days of intermittent burning chest sensation most likely GERD or pleurodynia related to recent respiratory infection. Considered ACS though reassuringly normal EKG today and feature not quite consistent. Will closely monitor and try famotidine 20mg up to BID prn. Assessment & Plan (09/06/2023 5:41 PM EST): Stable on omeprazole 40mg BID. Continue as is and continue to monitor. Assessment & Plan (01/31/2023 1:35 PM EDT): 62F with hx/o jeremy-en-y with refractory GERD sxs despite on omeprazole 40mg BID - referral placed to GI for specialist evaluation. Assessment & Plan (10/18/2022 9:34 AM EDT): Increasing omeprazole from 20 mg to 40 mg via shared decision making. We will follow-up at future visit in 3 months continue to monitor. If still refractory symptoms then switch to twice daily dosing and/or consider GI referral for endoscopy. Also refer with the development of any new red flag symptoms. Assessment & Plan (09/05/2022 8:09 PM EST): No red flags. Restarting PPI. Will continue to monitor. Insomnia 02/12/2015 Resolved Problems Problem Noted Date Diagnosed Date Resolved Date Prediabetes 2017 09/05/2022 Encounters Date Type Department Care Team Description 06/13/[address] [phone] Uyen Tolbert FNP Anxiety 06/01/[address] [phone] Juan M Haynes PA 05/29/2025 2:40 PM EST Clinical Support [address] [phone] Valerie Queen LPN Short-term memory loss (Primary Dx); Encounter for screening and preventative care [Z00.00] 05/29/2025 Results Follow-Up [address] [phone] Juan M Haynes PA TSH with Reflex to Free T4, HIV-1/2 Antigen and Antibodies, Fourth Generation, with Reflexes, RPR (Monitor) with Reflex to Titer, T4, Free 05/25/2025 3:40 PM EST Office Visit [address] [phone] Juan M Haynes PA Fibromyalgia (Primary Dx); Hypothyroidism, unspecified type; Encntr screen for infections w sexl mode of transmiss; Short-term memory loss 05/13/2025 3:40 PM EST Office Visit [address] [phone] Micheline Zarate FNP Cutaneous abscess of buttock (Primary Dx) 05/13/[address] [place] [address] Juan M Haynes PA 05/06/[address] [phone] Laureen Perez NP 05/05/[address] [phone] Adi Kelley AGNP 05/05/[address] [phone] Uyen Tolbert FNP Anxiety 04/17/2025 Results Follow-Up [address] [phone] Adi Kelley AGNP Iron, TIBC And Ferritin Panel, Comprehensive Metabolic Panel, CBC, Additional followed-up results: 2 03/27/2025 4:00 PM EDT Office Visit [address] [phone] Juan M Haynes PA Annual physical exam (Primary Dx); PATEL (obstructive sleep apnea); Iron deficiency; Fibromyalgia; Gastroesophageal reflux disease without esophagitis; Hypothyroidism, unspecified type; Anxiety; Encounter for immunization; Encounter for long-term (current) use of medications 03/27/[address] [phone] Juan M Haynes PA Gastroesophageal reflux disease without esophagitis 03/18/[address] [phone] Juan M Haynes PA Anxiety 03/16/[address] [phone] Juan M Haynes PA Anxiety from Last 3 Months Immunizations Immunization Administration Dates Next Due Hep B, Unspecified 04/01/1997,10/28/1996, 997 Influenza, IIV3, injectable 04/29/2023 Influenza, Unspecified 03/29/2019,2017,04/27/2017,2014,05/09/2014,04/08/2013,04/20/2011,0 03/23/2010,03/23/2009,05/12/2002 Influenza, seasonal, injecta ble, preservative free 03/27/2025,03/21/2024 Moderna Covid-19 Vaccine 12+ 03/27/2025,03/21/20 24,1962 Novel [id number], all formulations 05/11/2009 PPD Test 03/09/1997 Pfizer Covid-19 Vaccine 12+ 06/16/2021,,07/05/2020 Pneumococcal Conjugate PCV 20 11/04/2024 Td (adult), 5 Lf tetanus tox oid, preservative free, adsorbed 03/29/2018 Tdap 02/25/2008 Zoster, Recombinant 10/08/2018 Family History Medical History Relation Name Comments No Known Problems Daughter Prostate cancer Father Heart attack Maternal Grandfather Dementia Maternal Grandmother Breast cancer Mother Emphysema Mother Dementia Paternal Grandfather Dementia Paternal Grandmother Diabetes Sister Stroke Neg Hx Relation Name Status Comments Daughter Father Maternal Grandfather Maternal Grandmother Mother Paternal Grandfather Paternal Grandmother Sister Social History Tobacco Use Types Packs/Day Years Used Date Smoking Tobacco: Former Cigarettes 2 10 1 8 - 1987 Cigars Started: 02/26 24 Passive Smoke Exposure: Never Smokeless Tobacco: Never Tobacco Cessation:Counseling Given: Yes Alcohol Use Standard Drinks/Week Comments Never 0 (1 standard drink = 0.6 oz pure alcohol) hx/o etoh abuse, sober since 2018 Alcohol Answer Date Recorded How often do [...] your housing situation today? 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 Not on file Not on file Last Filed Vital Signs Vital Sign Reading Time Taken Comments Blood Pressure 107/72 05/25/2025 3:31 PM EST Pulse 95 05/25/2025 3:31 PM EST Temperature 36.2 C (97.2 F) 12/16/2024 11:21 AM EDT Respiratory Rate - - Oxygen Saturation 90% 05/25/2025 3:31 PM EST Inhaled Oxygen Concentration - - Weight 93.9 kg (207 lb) 03/27/2025 4:09 PM EDT Height 160.7 cm (5' 3.27 ) 09/06/2023 3:58 PM ES T Body Mass Index 36.36 09/06/2023 3:58 PM EST Plan of Treatment Health Maintenance Due Date Last Done Comments CT Colonography 1962 FIT DNA/Cologuard 1962 FIT 1962 FOBT 1960 Sigmoidoscopy 1960 Disability Screening 1962 Alcohol/Substance Use Screening 11/04/2025 11/04/2024 Depression Screening 11/04/2025 11/04/2024, 12/06/19 24 SDOH Screening 11/04/2025 11/04/2024 Mammogram 11/21/2025 11/21/2024, 11/06, 11/09/2023, Additional history exists Colonoscopy 12/17/2025 12/17/2020 Colorectal Cancer Screening 12/17/2025 Tobacco Screening 05/26/2026 05/26/2025 Cervical Cancer Screening 05/25/2027 HPV/Cotest 05/25/2027 05/25/2022 Pap Smear 05/25/2027 05/25/2022, 05/25/2022 DTaP/Tdap/Td Vaccines (3 - Td or Tdap) 03/29/2028 03/29/2018, 02/25/2008 Lipid Panel 04/02/2029 04/02/2024, 08/09, 09/04/2022, Additional history exists RSV Patients and Patients Aged 60 years or older (1 - 1-dose 75+ series) 2037 Hepatitis B Vaccines Completed 04/01/1997, 10/28/1996, 09/26/1996 Hepatitis C Screening Completed 09/04/2022 Pneumococcal Vaccine: 50+ Years Completed 11/04/2024 COVID-19 Vaccine Completed 03/27/2025, , 04/29/2023, Additional history exists Influenza Vaccine Completed 03/27/2025, , 04/29/2023, Additional history exists Zoster Vaccines Completed 03/30/2025, 10/08/2018 HIV Screening Completed 05/25/2025, 07/18/2019 HIB Vaccines Aged Out No longer eligi ble based on patient's age to complete this topic HPV Vaccines Aged Out No longer eligi ble based on patient's age to complete this topic Hepatitis A Vaccines Aged Out No long er eligible based on patient's age to complete this topic IPV Vaccines Aged Out No longer eligi ble based on patient's age to complete this topic Meningococcal B Vaccine Aged Out No l onger eligible based on patient's age to complete this topic Meningococcal Vaccine Aged Out No lan andrzej eligible based on patient's age to complete this topic RSV under 20 months Aged Out No longe r eligible based on patient's age to complete this topic Rotavirus Vaccines Aged Out No longer eligible based on patient's age to complete this topic Procedures Procedure Name Priority Date/Time Associated Diagnosis Comments T4, FREE Routine 05/25/2025 4:18 PM EST RPR (MONITOR) W/REFL TITER Routine 05/25/2025 4:18 PM EST Encntr screen for infections w sexl mode of transmiss HIV 1/2 ANTIGEN/ANTIBODY, FOURTH GENERATION W/RFL Routine 05/25/2025 4:18 PM EST Encntr screen for infections w sexl mode of transmiss TSH W/REFLEX TO FT4 Routine 05/25/2025 4 :18 PM EST Hypothyroidism, unspecified type FOLATE, SERUM Routine 04/14/2025 8:47 AM EDT History of anemia VITAMIN B12 Routine 04/14/2025 8:47 AM EDT History of anemia CBC Routine 04/14/2025 8:47 AM EDT History of anemia COMPREHENSIVE METABOLIC PANEL Routine 04/14/2025 8:47 AM EDT History of anemia IRON, TIBC AND FERRITIN PANEL Routine 04/14/2025 8:47 AM EDT History of anemia DRUG TOX MONITORING 1, W/CONF, ORAL FLUID Routine 03/27/2025 4:38 PM EDT Encounter for long-term (current) use of medications BI MAMMOGRAM SCREENING TOMOSYNTHESIS BILATERAL Routine 11/21/2024 12:55 PM EDT LIPID PANEL WITH REFLEX TO DIRECT LDL Routine 04/02/2024 1:38 PM EDT Malabsorption syndrome HEPATITIS C AB W/REFLEX TO HCV QUANT NAAT IF POSITIVE Routine 09/04/2022 3:59 PM EST HM PAP/HPV Routine 05/25/2022 HM PAP/HPV Routine 05/25/2022 COLONOSCOPY Routine 12/17/2020 12:00 AM EDT from Last 3 Months or Most Recently Relevant to Health Maintenance Results * (ABNORMAL) TSH with Reflex to Free T4 (05/25/2025 4:18 PM EST) TSH w/Reflex to FT4 0.32(L) 0.40 - 4.50 mIU/L [facility] Blood Venous blood specimen / Unknown 05/25/2025 4:18 PM EST 05/25/2025 4:18 PM EST Narrative [facility] - 05/26/2025 7:46 PM EST FASTING:NO FASTING: NO Juan M MORRISON LAB BLOOD ORDERABLES Final Resul t Performing Organization Address City/[facility]/ZIP Co de Phone Number [facility] [address], [place] [address] [email or web address] [place] [facility] 200 [place] [address] * RPR (Monitor) with Reflex to??Titer (05/25/2025 4:18 PM EST) RPR (Monitor) w/Refl Titer NON-REACT CORY NON-REACT CORY [facility] [place] [facility] Blood Venous blood specimen / Unknown 05/25/2025 4:18 PM EST 05/25/2025 4:18 PM EST Narrative [facility] - 05/26/2025 7:46 PM EST FASTING:NO FASTING: NO Juan M MORRISON LAB BLOOD ORDERABLES Final Resul t Performing Organization Address [facility] Co de Phone Number [email or web address] [address] [place] [address], [place] [address] [email or web address] [place] [facility] [address] [place] [phone] * HIV-1/2 Antigen and Antibodies, Fourth Generation, with Reflexes (05/25/2025 4:18 PM EST) HIV Final Interpretation HIV NEGATIVE [facility] [place] [facility] Comment: HIV-1 antigen and HIV-1/HIV-2 antibodies were not detected. There is no laboratory evidence of HIV infection. HIV Antigen/Antibody, 4th Generation NON-REACTIV E NON-REAC TIVE [facility] [place] [facility] Blood Venous blood specimen / Unknown 05/25/2025 4:18 PM EST 05/25/2025 4:18 PM EST Narrative [facility] - 05/26/2025 7:46 PM EST FASTING:NO FASTING: NO Juan M MORRISON LAB BLOOD ORDERABLES Final Resul t Performing Organization Address City/[facility]/ZIP Co de Phone Number [facility] [address] [place] [address], [place] [address] [facility] [place] [facility] [address] [place] [address] * T4, Free (05/25/2025 4:18 PM EST) T4, Free 1.5 0.8 - 1.8 ng/dL [facility] [place] [facility] 05/25/2025 4:18 PM EST 05/25/2025 4:18 PM EST Narrative [facility] - 05/26/2025 7:46 PM EST FASTING:NO FASTING: NO Juan M MORRISON LAB BLOOD ORDERABLES Final Resul t Performing Organization Address [facility] Co de Phone Number [facility] [address] [place] [address], [place] [address] [facility] [place] [facility] [address] [place] [phone] * (ABNORMAL) Iron, TIBC And Ferritin Panel (04/14/2025 8:47 AM EDT) Iron, Total 32(L) 45 - 160 mcg/dL [facility] Iron Binding Capacity 233(L) 250 - 450 mcg/dL (calc) [facility] % Saturation 14(L) 16 - 45 % (calc) [facility] Ferritin 124 16 - 288 ng/mL [facility] [place] [facility] Blood 04/14/2025 8:47 AM EDT 04/14/2025 8:48 AM EDT Narrative [facility] - 04/15/2025 8:25 AM EDT FASTING:NO FASTING: NO Adi COLON LAB BLOOD ORDERABLES Final Resul t Performing Organization Address [facility] Co de Phone Number [facility] [address] [place] [address], [place] [address] [email or web address] [place] [facility] [address] [place] [phone] * (ABNORMAL) CBC (04/14/2025 8:47 AM EDT) [facility] White Blood Cell Count 7.6 3.8 - 10.8 Thousand/ uL [facility] [place] [facility] Red Blood Cell Count 4.62 3.80 - 5.10 Million/u L [email or web address] [place] [facility] Hemoglobin 13.1 11.7 - 15.5 g/dL [email or web address] [place] [facility] Hematocrit 42.0 35.0 - 45.0 % [facility] [place] [facility] MCV 90.9 80.0 - 100.0 fL [facility] [place] [facility] MCH 28.4 27.0 - 33.0 pg [facility] [place] [facility] MCHC 31.2(L) 32.0 - 36.0 g/dL [email or web address] [place] [facility] Comment: For adults, a slight decrease in the calculated MCHC value (in the range of 30 to 32 g/dL) is most likely not clinically significant; however, it should be interpreted with caution in correlation with other red cell parameters and the patient's clinical condition. RDW 13.2 11.0 - 15.0 % [facility] [place] [facility] Platelet Count 269 140 - 400 Thousand/ uL [facility] [place] [facility] MPV 10.2 7.5 - 12.5 fL [facility] [place] [facility] Blood Venous blood specimen / Unknown 04/14/2025 8:47 AM EDT 04/14/2025 8:[address] [facility] 04/15/2025 8:25 AM EDT FASTING:NO FASTING: NO Adi November [facility] LAB BLOOD ORDERABLES Final Resul t [facility] [address], [place] [address] [email or web address] [place] [facility] 200 [place] [address] * Folate, Serum (04/14/2025 8:47 AM EDT) [facility] Folate, Serum >24.0 ng/mL [email or web address] [place] [facility] Comment: Reference Range Low: <3.4 Borderline: 3.4-5.4 Normal: >5.4 Blood Venous blood specimen / Unknown 04/14/2025 8:47 AM EDT 04/14/2025 8:48 AM EDT Narrative [facility] - 04/15/2025 8:25 AM EDT FASTING:NO FASTING: NO [facility] LAB BLOOD ORDERABLES Final Resul t Performing Organization Address [facility] de Phone Number [address] [phone] [email or web address] [place] [facility] [address] [place] [phone] * Vitamin B12 (04/14/2025 8:47 AM EDT) Pathologist [facility] Vitamin B12 681 200 - 1,100 pg/mL [facility] [place] [facility] Blood Venous blood specimen / Unknown 04/14/2025 8:47 AM EDT 04/14/2025 8:48 AM EDT Narrative [facility] - 04/15/2025 8:25 AM EDT FASTING:NO FASTING: NO [facility] AGN LAB BLOOD ORDERABLES Final Resul t Performing Organization Address [facility] de Phone Number [address] [phone] [email or web address] [place] [facility] [address] [place] [phone] * (ABNORMAL) Comprehensive Metabolic Panel (04/14/2025 8:47 AM EDT) Glucose 120 65 - 139 mg/dL [facility] [place] [facility] Comment: Non-fasting reference interval Urea Nitrogen (BUN) 12 7 - 25 mg/dL [email or web address] [place] [facility] Creatinine, Serum 0.77 0.50 - 1.05 mg/dL [facility] [place] [facility] eGFR 87 > OR = 60 mL/min/1. 73m2 [facility] [place] [facility] BUN/Creatinine Ratio SEE NOTE: (calc) [facility] [place] [facility] Comment: Not Reported: BUN and Creatinine are within reference range. Sodium 140 135 - 146 mmol/L [facility] [place] [facility] Potassium 4.5 3.5 - 5.3 mmol/L [facility] [place] [facility] Chloride 103 98 - 110 mmol/L [facility] [place] [facility] Carbon Dioxide 30 20 - 32 mmol/L [facility] [place] [facility] Calcium 9.1 8.6 - 10.4 mg/dL [facility] [place] [facility] Protein, Total 5.9(L) 6.1 - 8.1 g/dL [facility] [place] [facility] Albumin 3.6 3.6 - 5.1 g/dL [facility] [place] [facility] Globulin 2.3 1.9 - 3.7 g/dL (calc) [facility] [place] [facility] Albumin/Globuli n Ratio 1.6 1.0 - 2.5 (calc) [facility] [place] [facility] Bilirubin, Total 0.2 0.2 - 1.2 mg/dL [facility] [place] [facility] Alkaline Phosphatase 69 37 - 153 U/L [facility] [place] [facility] AST 13 10 - 35 U/L [facility] [place] [facility] ALT 10 6 - 29 U/L [facility] [place] [facility] Blood Venous blood specimen / Unknown 04/14/2025 8:47 AM EDT 04/14/2025 8:48 AM EDT Narrative [facility] - 04/15/2025 8:25 AM EDT FASTING:NO FASTING: NO us Adi November [facility] LAB BLOOD ORDERABLES Final Resul t [facility] [address], [place] [address] [email or web address] [place] [facility] [address] [place] [address] * (ABNORMAL) Drug Toxicology Monitoring 1, with Confirmation, Oral Fluid (03/27/2025 4:38 PM EDT) Pathologist [facility] Amphetamines NEGATIVE <10 ng/mL [facility] Barbiturates POSITIVE(A) <10 ng/mL [facility] [place] Amobarbital Negative <10 ng/mL [facility] [place] [facility] Butalbital Negative <10 ng/mL [facility] [place] Pentobarbital Negative <10 ng/mL [facility] [place] Phenobarbital 173(H) <10 ng/mL [facility] [place] Secobarbital Negative <10 ng/mL [facility] [place] [facility] Benzodiazepines NEGATIVE <0.50 ng/mL [facility] [place] Buprenorphine, Oral Fluid NEGATIVE <0.10 ng/mL [facility] [place] Cocaine, oral fluid NEGATIVE <5.0 ng/mL [facility] [place] Fentanyl NEGATIVE <0.10 ng/mL [facility] [place] Heroin Metabolite NEGATIVE <1.0 ng/mL [facility] [place] Marijuana, oral fluid NEGATIVE <2.5 ng/mL [facility] [place] [facility] MDMA Screen, Oral Fluid NEGATIVE <10 ng/mL [facility] [place] Meprobamate NEGATIVE <2.5 ng/mL [facility] [place] Methadone, Oral Fluid NEGATIVE <5.0 ng/mL [facility] [place] [facility] Nicotine Metabolite POSITIVE(A) <5.0 ng/mL [facility] [place] [facility] Cotinine 114.5(H) <5.0 ng/mL [facility] [place] [facility] Comment: Cotinine is a metabolite of nicotine. Opiates, oral fluid NEGATIVE <2.5 ng/mL [facility] [place] [facility] Phencyclidine, oral fluid NEGATIVE <10 ng/mL [facility] [place] Tapentadol NEGATIVE <5.0 ng/mL [facility] [place] Tramadol, Oral Fluid NEGATIVE <5.0 ng/mL [facility] [place] [facility] Zolpidem NEGATIVE <5.0 ng/mL [facility] [place] [facility] Comment: For additional information, please refer to http://education.Padlet/faq/HGB325 (This link is being provided for informational/ educational purposes only.) This drug testing is for medical treatment only. Analysis was performed as non-forensic testing and these results should be used only by healthcare providers to render diagnosis or treatment, or to monitor progress of medical conditions. For assistance with interpreting these drug results, please contact a [facility] Toxicology Specialist: [phone] ( ), M-F, 8am-6pm EST. These tests were developed and their analytical performance characteristics have been determined by [employer]. They have not been cleared or approved by the FDA. These assays have been validated pursuant to the CLIA regulations and are used for clinical purposes. Oral Fluid 03/27/2025 4:38 PM EDT 03/27/2025 4:39 PM EDT Juan M MORRISON LAB BODY FLUIDS AND STOOLS ORDER MAX Final Result [address], [place] [address] [email or web address] [address] [place] [phone] * BI Mammogram Screening Tomosynthesis Bilateral (11/21/2024 [...] (Benign) Lay letter mailed to patient WSN: [id number] Ordering Physician: Juan M Haynes Dictated By: Jessica Bernard MD Dictated Date/Time: 11/24/24 5:38 pm Reviewed By: Jessica Bernard MD Signed By: Jessica Bernard MD Signed Date/Time: 11/24/24 5:38 pm Transcribed By: JEANNINE Inspector Government Property Date/Time: 11/24/24 5:35 pm Birads: Procedure Note Donotuseinterpreter, Image - 11/24/2024 PROCEDURE: MM Digital Mammo [...] (Benign) Lay letter mailed to patient WSN: [id number] Ordering Physician: Juan M Haynes Dictated By: Jessica Bernard MD Dictated Date/Time: 11/24/24 5:38 pm Reviewed By: Jessica Bernard MD Signed By: Jessica Bernard MD Signed Date/Time: 11/24/24 5:38 pm Transcribed By: JEANNINE Inspector Government Property Date/Time: 11/24/24 5:35 pm Birads: Juan M MORRISON IM BI PROCEDURES Final Result * (ABNORMAL) Lipid Panel with Reflex to Direct LDL (04/02/2024 1:38 PM EDT) Cholesterol, Total 185 100 - 199 mg/dL [facility] Triglycerides 353(H) 0 - 149 mg/dL [facility] HDL Cholesterol 36(L) >39 mg/dL [facility] LDL Chol Calc (NIH) 91 0 - 99 mg/dL [facility] Chol/HDLC Ratio 5.1(H) 0.0 - 4.4 ratio [facility] Comment: T. Chol/HDL Ratio Men Women 1/2 Avg.Risk 3.4 3.3 Avg.Risk 5.0 4.4 2X Avg.Risk 9.6 7.1 3X Avg.Risk 23.4 11.0 Non-HDL Cholesterol 149(H) 0 - 129 mg/dL [facility] Blood 04/02/2024 1:38 PM EDT 04/02/2024 Narrative [facility] - 04/03/2024 6:05 AM EDT Performed at: 01 - [facility] [address] [id number] Car Hop: Kisha Tavera MD, Phone: [phone] Juan M MORRISON LAB BLOOD ORDERABLES Final Resul t Performing Organization Address City/[facility]/ZIP Co de Phone Number [facility] * Hepatitis C Antibody w/Reflex HCV Quant PCR (09/04/2022 3:59 PM EST) Hepatitis C Virus Ab, Serum NEGATIVE (NEG) [facility] Comment: Reference range: Negative This test was performed on the bizsol immunoassay system. Testing performed or reported by [facility], a Service of [facility], [address] [place] [id number] Angel Rodrigues MD, Retail Services Professional [facility]# [id number] 09/04/2022 3:59 PM EST 09/04/2022 4:00 PM EST us Juan M MORRISON LAB BLOOD ORDERABLES Final Resul t [facility] [address] [place] [address] * HM PAP/HPV (05/25/2022) Only the most recent of2 resultswithin the time period is included. Pap Smear 1. NILM 1. NILM HPV Not Detected Undetected, Indeterminat e, Quantitative , Not Detected us Historical Provider HEALTH MAINTENANCE Final Result * Colonoscopy (12/17/2020 12:00 AM EDT) Anatomical Region Laterality Modality Endoscopy 12/17/2020 Narrative 12/17/2020 12:00 AM EDT Refer to the Notes tab for result details [facility] Procedure: Colonoscopy Procedure Note ProviderZaida MD - 09/30/2022 Refer to the Notes tab for result details Legacy Procedure: Colonoscopy Historical Provider ENDOSCOPY PROCEDURE ORDER MAX Final Result from Last 3 Months or Most Recently Relevant to Health Maintenance Insurance [facility] Care Teams Rubber Compounder Relationship Specialty Start Date End Date Juan M Haynes PA [address] [place] [address] PCP - General Family Medicine 09/04/22 Myrna Sarmiento FNP [address] [place] [address] Family Medicine 05/05/22
--- OUTSIDE RECORDS SUMMARY | 2025-06-15 22:11 | XMS_ITS | Encounter Summary ---
Author Organization [employer] Address [address] [facility] 7t [place] [address] Care Team Providers Care School Principal Name Role Phone SarmientoMyrna desai PRESIDENT CEO & FOUNDER Unavailable [phone] Juan M Haynes Primary Care Provider [phone] Reason for Visit * Reason Comments Med Refill Encounter Details Date Type Department Care Team ([facility] Contact Info) Description 12/24/2024 Refill [facility] [address] [place] [phone] Laureen Perez NP [address] [place], [place] [phone] Anxiety Social History Tobacco Use Types Packs/Day Years Used Date Smoking Tobacco: Former Cigarettes 2 10 1 978 1987 Passive Smoke Exposure: Never Smokeless Tobacco: [...] 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 Not on file Not on file documented as of this encounter Miscellaneous Notes * Telephone Encounter - Indu Membreno [place] - 12/24/2024 9:45 AM EDT Too soon for refill documented in this encounter Plan of Treatment Not on file documented as of this encounter Visit Diagnoses Diagnosis Anxiety Anxiety state, unspecified documented in this encounter Additional Health Concerns Assessment Noted Time PHQ-9 Depression Total Score: 4 12/06/19 24 2:09 PM EDT documented as of this encounter Care Teams School Principal Relationship Specialty Start Date End Date Juan M Haynes PA [address] [place] [address] PCP - General Family Medicine 09/04/22 Myrna Sarmiento FNP [address] [place] [address] Family Medicine 05/05/22 documented as of this encounter
--- OUTSIDE RECORDS SUMMARY | 2025-06-15 22:12 | XMS_ITS | Encounter Summary ---
Author Organization [employer] Address [address] [facility] 7t [place] [address] Care Team Providers Care Class A Truck Driver Name Role Phone Myrna Sarmiento GEOTHER[employer]AL PLANT MANAGER Unavailable Juan M Haynes Primary Care Provider [phone] Reason for Visit * Reason Comments Med Refill Encounter Details Date Type Department Care Team (Late st Contact Info) Description 04/30/[address] 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 Not on file Not on file documented as of this encounter Miscellaneous Notes * Telephone Encounter - Indu Membreno [place] - 04/30/2024 9:23 AM EDT Duplicate documented in this encounter Plan of Treatment Not on file documented as of this encounter Visit Diagnoses Diagnosis Fibromyalgia Unspecified myalgia and myositis documented in this encounter Additional Health Concerns Assessment Noted Time PHQ-9 Depression Total Score: 4 12/06/19 24 2:09 PM EDT documented as of this encounter Care Teams Class A Truck Driver Relationship Specialty Start Date End Date Juan M Haynes PA [address] [place] [address] PCP - General Family Medicine 09/04/22 Myrna Sarmiento FNP [address] [place] [address] Family Medicine 05/05/22 documented as of this encounter
--- OUTSIDE RECORDS SUMMARY | 2025-06-15 22:12 | XMS_ITS | Encounter Summary ---
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 Saniya is very apologetic for the mix-up and sends apology to - did not mean to miss appointment. She states thatshe will come in for next week's appointment, sending to make aware and make sure the patient is onthe schedule for next week. Thank you! documented in this encounter Plan of Treatment Not on file documented as of this encounter Visit Diagnoses Not on filedocumented in this encounter Additional Health Concerns Assessment Noted Time PHQ-9 Depression Total Score: 4 12/06/19 24 2:09 PM EDT documented as of this encounter Care Teams Datapower Consultant Relationship Specialty Start Date End Date Juan M Haynes PA [address] [place] [address] PCP - General Family Medicine 09/04/22 Myrna Sarmiento FNP [address] [place] [address] Family Medicine 05/05/22 documented as of this encounter
--- OUTSIDE RECORDS SUMMARY | 2025-06-15 22:12 | XMS_ITS | Encounter Summary ---
Author Organization [employer] Address [address] [facility] 7 [place] [address] Care Team Providers Care Fine Arts Teacher Name Role Phone Myrna Sarmiento [facility] Unavailable [phone] Juan M Haynes Primary Care Provider [phone] Encounter Details Date Type Department Care Team ([facility] Contact Info) Description 06/10/[address] 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 documented in this encounter Plan of Treatment Not on file documented as of this encounter Visit Diagnoses Not on filedocumented in this encounter Additional Health Concerns Assessment Noted Time PHQ-9 Depression Total Score: 4 12/06/19 24 2:09 PM EDT documented as of this encounter Care Teams Fine Arts Teacher Relationship Specialty Start Date End Date Juan M Haynes PA [address] [place] [address] PCP - General Family Medicine 09/04/22 Myrna Sarmiento FNP [address] [place] [address] Family Medicine 05/05/22 documented as of this encounter
--- OUTSIDE RECORDS SUMMARY | 2025-06-15 22:12 | XMS_ITS | Encounter Summary ---
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 She has not heard from hematology/ please advise [phone] documented in this encounter Plan of Treatment Not on file documented as of this encounter Visit Diagnoses Not on filedocumented in this encounter Additional Health Concerns Assessment Noted Time PHQ-9 Depression Total Score: 4 12/06/19 24 2:09 PM EDT documented as of this encounter Care Teams Driver Education Road Instructor Relationship Specialty Start Date End Date Juan M Haynes PA [address] [place] [address] PCP - General Family Medicine 09/04/22 Myrna Sarmiento FNP [address] [place] [address] Family Medicine 05/05/22 documented as of this encounter
--- OUTSIDE RECORDS SUMMARY | 2025-06-15 22:12 | XMS_ITS | Encounter Summary ---
Author Organization [facility] Address [address] [place] [address] [place] [address] Phone Care Team Providers Care Deblocker Name Role Phone Cira Renteria MD Primary Care Provider [phone] Juan M Haynes Primary Care Provider [phone] Encounter Details Date Type Department Care Team (Late st Contact Info) Description 09/26/2018 Procedure Pass [facility] Endoscopy Admitting Dept Virtual Department [address] [place] [address] Social History Tobacco Use Types Packs/Day Years Used Date Smoking Tobacco: Former Cigarettes Q uit: 09/17/1979 Smokeless Tobacco: Never Alcohol Use Standard Drinks/Week Comments Never 0 (1 standard drink = 0.6 oz pur e alcohol) Comments Unknown Sex and Gender Information Value Date Recorded Sex Assigned at Not on file Legal Sex Female 4:00 PM EST Gender Identity Not on file Sexual Orientation Not on file documented as of this encounter Plan of Treatment Not on file documented as of this encounter Visit Diagnoses Not on filedocumented in this encounter Additional Health Concerns Infection Onset Date Last Indicated Resolved Time CoV-Risk Comment:Per note documentation 08/16/2024 08/16/2024 2:49 AM EST documented as of this encounter Care Teams Deblocker Relationship Specialty Start Date End Date Cira Renteria MD [email or web address] PCP - General Family Medicine 09/16/18 08/15/24 Juan M Haynes PA [address] [place] [address] PCP - General 08/16/24 documented as of this encounter Additional Source Comments The information contained in this document represents components of the legal health record. It is not the complete legal health record.[facility]
--- OUTSIDE RECORDS SUMMARY | 2025-06-15 22:12 | XMS_ITS | Encounter Summary ---
Author Organization [employer] Address [address] [facility] 7 [place] [address] Care Team Providers Care Brake Repair Mechanic Name Role Phone Myrna Sarmiento BEVERAGE STEWARD Unavailable Juan M Haynes Primary Care Provider [phone] Reason for Visit * Reason Onset Date Comments Med Refill 02/09/2023 Encounter Details Date Type Department Care Team (Late st Contact Info) Description 02/09/2023 Refill [facility] [address] [place] [phone] Juan M Haynes PA [address] [place] [address] Anxiety Social History Tobacco Use Types Packs/Day Years Used Date Smoking Tobacco: Former Cigarettes 2 10 1 988 - 1997 Passive Smoke Exposure: Never Smokeless Tobacco: Never Alcohol Use Standard Drinks/Week Comments Never 0 (1 standard drink = 0.6 oz pure alcohol) hx/o etoh abuse, sober since 2019 Depression Answer Date Recorded Patient Health Questionnaire-9 Score 10 09/04/2022 Depression Answer Date Recorded Patient Health Questionnaire-2 Score 3 09/04/2022 Comments Unknown Sex and Gender Information Value [...] encounter Miscellaneous Notes * Telephone Encounter - TAMIKO Chinchilla - 02/12/2023 12:00 PM EDT Great - thanks; cancelling this request then and will address at 02/16 appt. documented in this encounter Plan of Treatment Not on file documented as of this encounter Visit Diagnoses Diagnosis Anxiety Anxiety state, unspecified documented in this encounter Additional Health Concerns Assessment Noted Time PHQ-9 Depression Total Score: 10 023 2:59 PM EST documented as of this encounter Care Teams Brake Repair Mechanic Relationship Specialty Start Date End Date Juan M Haynes PA [address] [place] [address] PCP - General Family Medicine 09/04/22 Myrna Sarmiento FNP [address] [place] [address] Family Medicine 05/05/22 documented as of this encounter
--- OUTSIDE RECORDS SUMMARY | 2025-06-15 22:12 | XMS_ITS | Encounter Summary ---
Author Organization [employer] Address [address] [facility] 7 [place] [address] Care Team Providers Care Manager Internet Retails Sales Name Role Phone Myrna Sarmiento BEER MERCHANT Unavailable [phone] Juan M Haynes Primary Care Provider [phone] Reason for Visit * Reason Comments Med Refill Encounter Details Date Type Department Care Team (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 on file Not on file Not on file documented as of this encounter Miscellaneous Notes * Telephone Encounter - Laureen Perez NP - 09/12/2024 12:51 PM EST Duplicate * Telephone Encounter - Codie Claudio - 09/10/2024 4:58 PM EST PCP: TAMIKO Chinchilla Last in-person office visit: 08/28/2024 TAMIKO Chinchilla Lab Results Component Value Date BUN 12 04/02/2024 CREATININE 1.12 (H) 04/02/2024 EGFRCREATINI 101 02/09/2023 HGBA1C 5.6 08/20/2024 K 4.9 04/02/2024 TSH 0.522 04/02/2024 Assessment: [x] Protocol passed [] Lab due [] Appointment due Plan: [x] Please refill for 30 days [] Lab [] BMP [] TSH [...] documented as of this encounter Care Teams Manager [employer] Ret[employer] Sales Relationship Specialty Start Date End Date Juan M Haynes PA [address] [place] [address] PCP - General Family Medicine 09/04/22 Myrna Sarmiento FNP [address] [place] [address] Family Medicine 05/05/22 documented as of this encounter
--- OUTSIDE RECORDS SUMMARY | 2025-06-15 22:12 | XMS_ITS | Clinical Summary ---
Author Organization [facility] Address [address] [address] Phone Care Team Providers Care Gel Coater Name Role Phone Juan M Haynes Primary Care Provider [phone] Allergies Active Allergy Reactions Criticality Noted Date Comments Cefotetan Anaphylaxis High 09/16/2018 Latex Rash Low 09/16/2018 Piperacillin Anaphylaxis High 09/16/2018 Piperacillin-Tazobactam 09/16/2018 Medications ALPRAZolam (XANAX) 0.5 MG tablet Take 0.5 mg by mouth 2 (two) times a day as needed for sleep or anxiety. Active DULoxetine (CYMBALTA) 60 MG capsule Take 60 mg by mouth daily. Active gabapentin (NEURONTIN) 100 MG capsule Take 100 mg by mouth 2 (two) times a day. Active clobetasol (TEMOVATE) 0.05 % cream Apply topically 2 (two) times a day as needed. Active levothyroxine (SYNTHROID, LEVOTHROID) 150 MCG tablet Take 150 mcg by mouth every morning. Active ferrous sulfate (IRON ORAL) Take by mouth daily. Active L. rhamnosus GG/inulin (CULTURELLE PROBIOTICS ORAL) Take by mouth. Activ e calcium carb/vit D3/minerals (CALCIUM-VITAMI N D ORAL) Take by mouth 3 (three) times a week. Active gabapentin (NEURONTIN) 300 MG capsule Take 600 mg by mouth nightly at bedtime. Active docusate (COLACE) 100 mg tablet Take 100 mg by mouth 2 (two) times a day. Active fluticasone propionate (FLONASE) 50 mcg/actuation nasal spray 2 sprays by Nasal route 2 (two) times a day. Active cyanocobalamin, vitamin B-12, 2,[address] 2,500 mcg under the tongue 2 (two) times a week. Active primidone (MYSOLINE) 50 MG tablet Take 50 mg by mouth 2 (two) times a day. Active omeprazole (PRILOSEC) 40 MG capsule Take 40 mg by mouth 2 (two) times a day. Active nortriptyline (PAMELOR) 50 MG capsule Take 50 mg by mouth. 5 03/27/20 26 Active ciprofloxacin HCl (CIPRO) 250 MG tablet Active Active Problems Problem Noted Date Diagnosed Date Gastric bypass status for obesity 08/18/2024 Severe obesity 08/18/2024 Depression with anxiety 08/17/2024 Assessment & Plan (08/18/2024 1:31 PM EST): Patient has a history of depression with anxiety that is well controlled with medication Plan Continue home medications. Assessment & Plan (08/17/2024 1:21 AM EST): Continue home medications. Hypoalbuminemia 08/17/2024 Assessment & Plan (08/18/2024 1:31 PM EST): Unclear cause. Albumin was 2.9 on 08/17, UA was negative for proteinuria, RD consulted Plan - Await RD consult - redraw LFTs - continue to monitor POCT glucose Assessment & Plan (08/17/2024 1:21 AM EST): Unclear cause. Will check urinalysis to evaluate for proteinuria. Very mild lower extremity edema. Will consult nutrition. Tremor of hands and face 09/06/2023 Iron deficiency anemia 10/18/2022 Overview (08/18/2024): Outside Source Comment: Last Assessment & Plan: Continue with iron supplementation. Repeat labs prior to next visit. She is up-to-date on colon cancer screening with next colonoscopy due in 2025. Refer sooner if no resolution of anemia despite supplementation or development of any signs/symptoms of GI blood loss. Vitamin D deficiency 07/22/2019 Fibromyalgia 2017 Hypothyroidism 2017 Essential hypertension 2017 Malabsorption syndrome 2017 Overview (08/18/2024): Outside Source Comment: Overview: S/p jeremy-en-y gastric bypass in 2000 Last Assessment & Plan: Stable. Continue supplementation. Repeating monitoring labs. Prediabetes 2017 Anxiety 11/03/2016 Overview (08/18/2024): Outside Source Comment: Last Assessment & Plan: Some refractory symptoms off atenolol. Increasing nortriptyline as noted above and placed referral for possible family therapy. Otherwise continue same med regimen. Obtained repeat tox screen today for xanax use - no concern for misuse/diversion at this time. Pt taking appropriately as prescribed. Gastroesophageal reflux disease without esophagi tis 06/22/2015 Overview (08/18/2024): Outside Source Comment: Last Assessment & Plan: 62F with hx/o jeremy-en-y with refractory GERD sxs despite on omeprazole 40mg BID - referral placed to GI for specialist evaluation. Insomnia 02/12/2015 Incisional hernia 07/02/2011 Hearing loss 09/07/2010 Anemia Colon polyp Lone atrial fibrillation Overview (08/18/2024): In her 20s. No longer considered an active diagnosis. Assessment & Plan (08/18/2024 1:31 PM EST): Not anticoagulated Plan - SCDs as patient is currently having difficulty ambulating due to shortness of breath Resolved Problems Problem Noted Date Diagnosed Date Resolved Date Pneumonia 08/17/2024 08/22/2024 Assessment & Plan (08/18/2024 1:31 PM EST): Patient's presentation may be viral versus atypical pneumonia, respiratory pathogen panel pending. SARS-CoV-2 PCR and influenza negative, UR legionella AG and strep pneumo Ag are negative. She is on 8 L overnight, diffuse crackles on auscultation, CT chest shows diffuse bilateral peribronchovascular groundglass opacities with small consolidative components which radiology feels represents atypical/viral pneumonia. WBC was elevated on 08/17 12.66 K/uL, hgb decreased to 11.2, and HCT decreased 35.1. Plan -Patient continues on azithromycin -Consult pulmonology - Continue O2 therapy via NRB as tolerated - pain control with acetaminophen PRN -Follow labs Assessment & Plan (08/17/2024 1:21 AM EST): Atypical pneumonia or viral pneumonia based upon imaging findings. She does not have a white count, fever or productive cough. Azithromycin in the emergency department. I feel that this is likely sufficient. She has a history of anaphylaxis with beta-lactam's and I do not feel that her symptoms warrant to giving fluoroquinolones. If she is failing to improve we can readdress. Acute respiratory failure with hypoxia 08/17/2024 08/22/2024 Assessment & Plan (08/18/2024 1:37 PM EST): Patient has sick for about 10 days, today reports productive cough, chest pain, and dyspnea especially with exertion. Has tested negative for COVID and influenza. Concern for atypical pneumonia versus viral etiology. UR legionella AG and strep pneumo Ag are negative. Viral cultures pending. RSV negative. CT chest showed groundglass opacities bilaterally, no PE Concern for possible underlying COPD, did have an oxygen requirement years ago after hernia surgery. Now is tolerating 8L O2 via NRB but still feeling very short of breath. Plan -Continues on azithromycin, Mucinex, nebulizer treatments, prednisone was added yesterday - Echocardiogram pending - Keep on tele and continuous o2 sat monitoring -Patient is on fairly maximal oxygen at this point, increased respiratory rate and accessory muscle use, we will consult pulmonology and ICU for more urgent evaluation, may need transfer/high flow, will check ABG now -Viral panel pending -May need high flow oxygen and/or bronchoscopy Assessment & Plan (08/17/2024 1:21 AM EST): She looks markedly ill. Chest auscultation with rales throughout and chest x-ray with pulmonary edema but CT scan with findings more consistent with a viral/atypical pneumonia. Given how ill she appears I feel that this is likely more of an infectious etiology. We will provide supplemental oxygen and wean as able. Will check a respiratory viral panel. Encounters Date Type Department Care Team Description 04/01/2025 5:50 PM EDT Office Visit [facility] at [address] [address] Mickey Grady PA-C Cellulitis of left upper extremity (Primary Dx) from Last 3 Months Immunizations Immunization Administration Dates Next Due Hepatitis B, unspecified formulation 04/01/1997, 10/28/1996,09/26/1996 INFLUENZA, SPLIT VIRUS, TRIVALENT PF 03/27/2025, 03/21/2024 Pneumococcal conjugate PCV20 11/04/2024 Td, unspecified formulation 03/29/2018 Tdap 02/25/2008 Zoster recombinant 10/08/2018 Social History Tobacco Use Types Packs/Day Years Used Date Smoking Tobacco: Former Cigarettes Q uit: 09/17/1979 Smokeless Tobacco: Never Tobacco Cessation:Counseling Given: Not Answered Alcohol Use Standard Drinks/Week Comments Never 0 (1 standard drink = 0.6 oz pur e alcohol) Education Answer Date Recorded Are you interested in more education? Not on mono e 11/03/2022 Are you concerned about learning? Not on file 11/03/2022 No 11/03/2022 No 11/03/2022 Food Answer Date Recorded Within the past 6 months we worried whether our food would run out before we got money to buy more. Never True 08/19/2024 Within the past 6 months the food we bought just didn't last and we didn't have enough money to get more. Never True Residential Stability Answer Date Recor ded What is your housing situation today? I have mickey sing 08/19/2024 How many times have you move d in the past 12 months? Zero (I did not move) 08/19/2024 Paying for Meds Answer Date Recorded Do you have trouble paying for medicines? No 08/19/2024 Paying Utility Bills Answer Date Record ed Do you have trouble paying your heating or elect ricity bill? No 08/19/2024 Transportation Answer Date Recorded Has the lack of transportati on kept you from medical appointments or from getting medications? No 08/19/2024 Digital Access Answer Date Recorded No 08/19/2024 Yes 08/19/2024 Do you have reliable internet access at home? Ye s 08/19/2024 Do you have a device (e.g., phone, tablet, computer) with a working camera? Yes 08/19/2024 Intimate Partner Violence Answer Date R ecorded Are you denied basic needs s uch as food, clothing, or medical care? No 08/16/2024 In the past 12 months have y ou been in a relationship with a person who hurts, threatens, or tries to control you? No 08/16/2024 Are you denied basic needs s uch as food, clothing, or medical care? No 08/16/2024 In the past 12 months have y ou been in a relationship with a person who hurts, threatens, or tries to control you? No 08/16/2024 Comments Unknown Sex and Gender Information Value Date Recorded Sex Assigned at Not on file Legal Sex Female 4:00 PM EST Gender Identity Not on file Sexual Orientation Not on file Last Filed Vital Signs Vital Sign Reading Time Taken Comments Blood Pressure 132/82 04/01/2025 5:48 PM EDT Pulse 81 04/01/2025 5:48 PM EDT Temperature 36.5 C (97.7 F) 04/01/2025 5:48 PM EDT Respiratory Rate 16 04/01/2025 5:48 PM EDT Oxygen Saturation 97% 04/01/2025 5:48 PM EDT Inhaled Oxygen Concentration 30% 08/20/2024 7 :32 AM EST Weight 93 kg (205 lb) 04/01/2025 5:48 PM EDT Height 162.6 cm (5' 4 ) 04/01/2025 5:48 PM EDT Body Mass Index 35.19 04/01/2025 5:48 PM EDT Plan of Treatment Health Maintenance Due Date Last Done Comments LIPID PANEL 1960 DEPRESSION SCREENING 1974 HEPATITIS C SCREENING 1980 HIV ONE-TIME SCREENING (18-65 YEARS) 1980 PAP SMEAR 1983 COLOGUARD 2007 FIT TEST 2007 FOBT 2007 SIGMOIDOSCOPY 2007 VIRTUAL COLONOSCOPY 2007 RSV VACCINE (1 - Risk 50-74 years 1-dose series) 2012 ZOSTER VACCINES (2 of 2) 12/03/2018 10/08/2018 TSH LEVEL 08/17/2025 08/17/2024 BLOOD PRESSURE 09/29/2025 04/01/2025 SMOKING Hx and SMOKELESS TOBACCO SCREENING 04/01/2026 04/01/2025 MAMMOGRAM 11/21/2026 11/21/2024, 05/0 09/2023, 10/27/2022, Additional history exists SCREENING FOR DIABETES 08/20/2027 08/20/2024, 2024 Adult Td,Tdap Booster 03/29/2028 03/29/2018, 008 COLONOSCOPY 09/26/2028 09/26/2018 COLORECTAL CANCER SCREENING 09/26/2028 PNEUMOCOCCAL VACCINES (50+ years) Completed 11/04/2024 COVID-19 VACCINE Completed 03/27/2025, , 04/29/2023, Additional history exists INFLUENZA VACCINE Completed 03/27/2025, , 04/29/2023, Additional history exists HEPATITIS A VACCINES Aged Out No long er eligible based on patient's age to complete this topic HIB VACCINES Aged Out No longer eligi ble based on patient's age to complete this topic MENINGOCOCCAL VACCINES (ACWY) Aged Out No longer eligible based on patient's age to complete this topic MENINGOCOCCAL VACCINES (B) Aged Out N o longer eligible based on patient's age to complete this topic Medical Devices Not on file Procedures Procedure Name Priority Date/Time Associated Diagnosis Comments TSH WITH REFLEX Routine 08/17/2024 4:52 AM EST ENDOSCOPY, COLON 09/26/2018 12:4 3 PM EDT from Last 3 Months or Most Recently Relevant to Health Maintenance Results * TSH with reflex (08/17/2024 4:52 AM EST) TSH 0.74 0.27 - 4.20 uIU/mL [facility] Blood 08/17/2024 4:52 AM EST 08/17/2024 5:19 AM EST us Radu Hopperpson DO LAB BLOOD BKR ORDERABLES Sharon spangler Result [facility] [address] [place] [address] * ENDOSCOPY, COLON (09/26/2018 12:43 PM EDT) Narrative Transcriptions Ric Bennett MD - 09/26/2018 12:43 PM EDT Patient Name: Saniyalorie Poole Attending MD:: RIC BENNETT MD, Procedure Date: 09/26/2018 12:43 PM Date of : 1960 Age: 58 Admit Type: Outpatient Gender: Female Room: [facility] Referring MD: Cira Renteria Exam Type: Colonoscopy Indications: High risk colon cancer surveillance: Personal historyof colonic polyps Medications: Monitored Anesthesia Care Procedure: Informed consent was obtained from the patient after discussion of the indications, limitations,alternatives, benefits, and risks of the procedure. Risksspecifically discussed include but are not limited to medication reactions, missed lesions, bleeding, perforation, orthe need for emergent surgery. Throughout the procedure, the patient's blood pressure, pulse, end-tidal CO2, and oxygen saturations were monitored continuously. The Olympus adult variable colonoscope [id number] #3 was introduced through the anus and advanced to the cecum, identified by appendiceal orifice and ileocecal valve.The colonoscopy was performed without difficulty. Thepatient tolerated the procedure well. The quality of the bowel preparation was good. The quality of the bowelpreparation was evaluated using the BBPS ([place] Bowel Preparation Scale) with scores of: Right Colon = 2 (minor amount of residual staining, small fragments of stool and/oropaque liquid, but mucosa seen well), Transverse Colon = 3 (entire mucosa seen well with no residual staining,small fragments of stool or opaque liquid) and Left Colon = 2 (minor amount of residual staining, small fragments of stool and/or opaque liquid, but mucosa seen well). The total BBPS score equals 7. The quality of the bowel preparation was good. Complications: No immediate complications. Estimated blood loss:None. Findings: The perianal and digital rectal examinations werenormal. Internal hemorrhoids were found during retroflexion.The hemorrhoids were mild. The exam was otherwise normal throughout the examined colon. Impression: - Internal hemorrhoids. - No specimens collected. Recommendation: - Discharge patient to home. - Repeat colonoscopy in 5 years for surveillance. RIC BENNETT MD, 09/26/2018 1:04:15 PM This report has been signed electronically. Number of Addenda: 0 Note Initiated On: 09/26/2018 12:43 PM Procedure Code(s): --- Professional --- 84615, Colonoscopy, flexible; diagnostic, including collection of specimen(s) by brushing or washing, when performed (separateprocedure) --- Technical --- 64556, Colonoscopy, flexible; diagnostic, including collection of specimen(s) by brushing or washing, when performed (separateprocedure) Diagnosis Code(s): --- Professional --- Z86.010, Personal history of colonic polyps K64.8, Other hemorrhoids --- Technical --- Z86.010, Personal history of colonic polyps K64.8, Other hemorrhoids CPT copyright 2016 [employer]. All rights reserved. The codes documented in this report are preliminary and upon dramatic director reviewmay be revised to meet current compliance requirements. [address] [place] [address] Cira Renteria MD GI PROCEDURE ORDERABLES Final Result from Last 3 Months or Most Recently Relevant to Health Maintenance Insurance ELGIN POS WELLSENSE NON NSPG PCP SILVER CLARITY CONNECTORCARE ELGIN POS WELLSENSE NON NSPG PCP SILVER CLARITY CONNECTORCARE ELGIN POS WELLSENSE NON NSPG PCP SILVER CLARITY CONNECTORCARE UNITED POS WELLSENSE NON NSPG PCP SILVER CLARITY CONNECTORCARE ELGIN POS PCP DIVYA PARRISH CONNECTORCARE ELGIN POS WELLSENSE NON NSPG PCP DIVYA PARRISH CONNECTORCARE Advance Directives For more information, please contact: [phone] (9AM - 5PM Pam/[facility], Sunday-Sunday) Documents on File Type Date Recorded Patient Tool Inspector Expl anation Healthcare Proxy 08/19/2024 4:46 PM * Full Code (Latest Code Status on File) Date Activated Date Inactivated Comments 08/17/2024 1:21 AM Question Answer Comments Code Status Confirmed With: Patient Care Teams Gel Coater Relationship Specialty Start Date End Date Juan M Haynes PA [address] [place] [id number] PCP - General 08/16/24 Additional Source Comments The information contained in this document represents components of the legal health record. It is not the complete legal health record.[facility]
--- OUTSIDE RECORDS SUMMARY | 2025-06-15 22:12 | XMS_ITS | Encounter Summary ---
Author Organization [facility] Address [address] [facility] [address] [place] [address] Phone Care Team Providers Care Coke Oven Patcher Name Role Phone Juan M Haynes Primary Care Provider [phone] Encounter Details Date Type Department Care Team (Late st Contact Info) Description 08/17/2024 Procedure Pass [facility] [address] [place] [address] Social History Tobacco Use Types Packs/Day Years [...] Time CoV-Risk Comment:Per note documentation 08/16/2024 08/16/2024 5 2:49 AM EST documented as of this encounter Care Teams Coke Oven Patcher Relationship Specialty Start Date End Date Juan M Haynes PA [address] [place] [id number] PCP - General 08/16/24 documented as of this encounter Additional Source Comments The information contained in this document represents components of the legal health record. It is not the complete legal health record.[facility]
--- OUTSIDE RECORDS SUMMARY | 2025-06-15 22:12 | XMS_ITS | Encounter Summary ---
Author Organization [employer] Address [address] [facility] 7 [place] [address] Care Team Providers Care Puppy Walker Name Role Phone Myrna Sarmiento [facility] Unavailable [phone] Juan M Haynes Primary Care Provider [phone] Encounter Details Date Type Department Care Team (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 Please call when ready to berry picker or send it thru her [employer] portal. [phone] documented in this encounter Plan of Treatment Not on file documented as of this encounter Visit Diagnoses Not on filedocumented in this encounter Additional Health Concerns Assessment Noted Time PHQ-9 Depression Total Score: 4 12/06/19 24 2:09 PM EDT documented as of this encounter Care Teams Puppy Walker Relationship Specialty Start Date End Date Juan M Haynes PA [address] [place] [address] PCP - General Family Medicine 09/04/22 Myrna Sarmiento FNP [address] [place] [address] Family Medicine 05/05/22 documented as of this encounter
--- OUTSIDE RECORDS SUMMARY | 2025-06-15 22:12 | XMS_ITS | Encounter Summary ---
Author Organization [employer] Address [address] [facility] 7t [place] [address] Care Team Providers Care Public Safety Teacher Name Role Phone Myrna Sarmiento CURTAIN WORKER Unavailable Juan M Haynes Primary Care Provider [phone] Reason for Visit * Reason Onset Date Comments Med Refill 03/25/2024 Encounter Details Date Type Department Care Team (Late st Contact Info) Description 03/25/2024 Refill [facility] [address] [place] [phone] Yanira Steen FNP [address] [place], [place] [id number] Social History Tobacco Use Types Packs/Day Years [...] 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
--- OUTSIDE RECORDS SUMMARY | 2025-06-15 22:12 | XMS_ITS | Clinical Summary ---
Author Organization [facility] Address [address] [place] [address] Care Team Providers Care Hired Help Name Role Phone Juan M Haynes Primary Care Provider [phone] Allergies Active Allergy Reactions Criticality Noted Date Comments Cefotetan Anaphylaxis,Hives,Ra sh High 05/29/2012 CIS - rash (unspecified) CIS - RASH Other reaction(s): Anaphelaxis CIS - rash (unspecified) CIS - RASH Morphine Delirium 04/02/2023 Other Rash High 05/05/2024 Piperacillin Anaphylaxis High 09/16/2018 CIS - Rash, peticea Piperacillin-Tazobacta m Anaphylaxis High 09/16/2018 Piperacillin-Tazobacta m-Dextrs Anaphylaxis High 09/16/2018 Piperazine Hives High 05/29/2012 Piperazine (Bulk) Hives High 05/29/2012 Sulfamethoxazole-Trime thoprim Hives,Itching,Rash Medium 11/21/2013 Other reaction(s): other Tazobactam Anaphylaxis High 04/02/2023 CIS - Rash, peticea Medications mupirocin (BACTROBAN) 2% ointmentIndicat ions:Onychotill omania Apply to the skin around the nails to prevent infection twice daily until healed 30 g 5 4 Active Active Problems No known active problems Social History Tobacco Use Types Packs/Day Years Used Date Smoking Tobacco: Every Day Cigarettes 2 1.9 Started: 2023 Cigars Started: 2023 Tobacco Cessation:Ready to Q uit: Not Asked; Counseling Given: Not Answered Comments Unknown Sex and Gender Information Value Date Recorded Sex Assigned at Female 12/07/2023 11:48 AM EDT Legal Sex Female 11:47 AM EDT Gender Identity Not on file Sexual Orientation Not on file Plan of Treatment Health Maintenance Due Date Last Done Comments Cervical Cancer Screening 1962 Cologuard 1962 FOBT / Fit Test 1962 HPV and Pap Smear 1962 Hepatitis C Screening 1962 Pap Smear 1962 Sigmoidoscopy 1962 Pneumococcal Vaccine: 50+ Years (1 of 2 - PCV) 1981 Zoster Vaccines (2 of 2) 12/03/2018 10/08/2018 Mammogram 08/10/2019 08/10/2017 Alcohol/Substance Use Screening 07/09/2024 Depression Screening and Follow-Up 07/09/2024 Social Drivers of Health Annual Screening 07/09/2024 Influenza Vaccine (#1) 2025 , 04/29/2023, 03/29/2019, Additional history exists COVID-19 Vaccine ( - season) 2025 03/21/2024, 06/16/2021, 08/02/2020, Additional history exists DTaP,Tdap,and Td Vaccines (4 - Td or Tdap) 03/29/2028 03/29/2018, 03/29/2018, 02/25/2008 Colon Cancer Screening 12/17/2030 Colonoscopy 12/17/2030 12/17/2020 RSV Vaccine (60+ years old and patients) (1 - 1-dose 75+ series) 2037 Hepatitis B Vaccines Aged Out 04/01/1997, 10/28/1996, 09/26/1996 No longer eligible based on patient's age to complete this topic HIV Screening Completed 07/18/2019 Insurance [employer] Care Teams Hired Help Relationship Specialty Start Date End Date Juan M Haynes PA PCP - General 12/07/23
--- OUTSIDE RECORDS SUMMARY | 2025-06-15 22:12 | XMS_ITS | Encounter Summary ---
Author Organization [facility] Address [address] [facility] [address] [place] [address] Phone Care Team Providers Care Building Drafting Officer Name Role Phone Juan M Haynes Primary Care Provider [phone] Encounter Details Date Type Department Care Team (Late st Contact Info) Description 08/16/2024 Procedure Pass [facility], Ct Scan - [address] [address] Social History Tobacco Use Types Packs/Day Years [...] on file documented as of this encounter Functional Status * Calculated C-SSRS Risk Score (Lifetime/Recent) Answer Date of Assessment Author No Risk Indicated 08/16/2024 8:29 PM Cinthya Giles RN * [place] Suicide Severity Rating Scale (Screener/Recent Self-Report) Question Answer Date of Assessment Author 1. Wish to be (Past 1 Month) No 08/16/2024 8:29 PM Cinthya Giles RN 2. Non-Specific Active Suicidal Thoughts (Past 1 Month) No 08/16/2024 8:29 PM Cinthya Giles RN 6. Suicidal Behavior (Lifetime) No 08/16/2024 8:29 PM Cinthya Giles RN documented as of this encounter Plan of Treatment Not on file documented as of this encounter Visit Diagnoses Not on filedocumented in this encounter Additional Health Concerns Infection Onset Date Last Indicated Resolved Time CoV-Risk Comment:Per note documentation 08/16/2024 08/16/2024 02/10/202 5 2:49 AM EST documented as of this encounter Care Teams Building Drafting Officer Relationship Specialty Start Date End Date Juan M Haynes PA [address] [place] [address] PCP - General 08/16/24 documented as of this encounter Additional Source Comments The information contained in this document represents components of the legal health record. It is not the complete legal health record.[facility]
--- OUTSIDE RECORDS SUMMARY | 2025-06-15 22:12 | XMS_ITS | Encounter Summary ---
Author Organization [employer] Address [address] [facility] 7 [place] [address] Care Team Providers Care Water Resources Technical Officer Name Role Phone Myrna Sarmiento SALESMAN/OWNER Unavailable [phone] Juan M Haynes Primary Care Provider [phone] Reason for Visit * Reason Comments Med Refill Encounter Details Date Type Department Care Team ([facility] Contact Info) Description 04/15/2024 Refill [facility] [address] [place] [phone] Juan M Haynes PA [address] [place], [place] [phone] Anxiety Social History Tobacco Use Types Packs/Day [...] documented as of this encounter Care Teams Water Resources Technical Officer Relationship Specialty Start Date End Date Juan M Haynes PA [address] [place] [address] PCP - General Family Medicine 09/04/22 Myrna Sarmiento FNP [address] [place] [address] Family Medicine 05/05/22 documented as of this encounter
== END 2025-06-15 14:04 | disposition home or self-care (01) ==
LOC: HO.HSM 13:27
PROVIDERS: PCP Physician Assistant Medical; Visit Provider Registered Nurse
DX: G25.0 Essential tremor (principal); G31.84 Mild cognitive impairment of uncertain or unknown etiology
CPT/HCPCS: 99214

== ENCOUNTER 2025-06-15 13:26 | Outpatient (REF) | payer OTHER, SELFPAY ==
[2025-06-15 18:01] LABS: Folate 17.8 ng/mL (> or = 4.0); Vitamin B12 457 pg/mL (200-900)
[2025-06-15 18:31] LABS: Free T4 (Free Thyroxine) 0.97 ng/dL (0.71-1.85)
== END 2025-06-15 13:27 | disposition home or self-care (01) ==
LOC: HO.LAB 13:26
PROVIDERS: PCP Physician Assistant Medical; Visit Provider Registered Nurse
DX: G31.84 Mild cognitive impairment of uncertain or unknown etiology (principal); G25.0 Essential tremor; Z79.899 Other long term (current) drug therapy
CPT/HCPCS: 36415; 82233; 82234; 82607; 82746; 84393; 84439; 84443

== ENCOUNTER 2025-06-19 12:50 | Outpatient (AMB) | payer OTHER, SELFPAY ==
--- NOTE | 2025-06-19 13:03 | A.OFFVIS_ITS ---
Intake Visit Reasons: Cognitive Testing Allergies cefotetan Allergy (Unknown, Verified 06/19/25 13:03) Unknown Penicillins Allergy (Unknown, Verified 06/19/25 13:03) Unknown piperacillin Allergy (Unknown, Verified 06/19/25 13:03) Unknown sulfamethoxazole (From Bactrim) Allergy (Unknown, Verified 06/19/25 13:03) Unknown trimethoprim (From Bactrim) Allergy (Unknown, Verified 06/19/25 13:03) Unknown Medication List - Last Reconciled 06/19/25 by Erinn Mehta, SAKSHI alprazolam 0.5 mg PO duloxetine 60 mg PO DAILY gabapentin 100 mg PO BID gabapentin 600 mg PO BEDTIME levothyroxine 137 mcg PO DAILY nortriptyline 50 mg PO BEDTIME primidone 50 mg PO BID 90 days HPI Comments Details: She is here today for cognitive testing with MMSE and MoCA. She has bachelor's degree in psychology. She started to notice some decline around 2019, but has worsened over the last 9 months. She lives alone in apartment. In the last few months, there have been times when she left the stove on, left the oven on, left the faucet on, and left her car running. She also feels like her gait is more off lately and notices that she lists from one side to another, but no falls. 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 No work performance issues noted, but will sometimes forget what someone says and needs them to repeat. She started using CPAP few months ago, sleep okay. Some anxiety, and may be more anxious related to memory concerns. Tremor was okay with primidone, can be worse when anxious. No functional impairment. No difficulty eating, drinking, or swallowing. Has not used alcohol since 11/2017. She has bachelor's degree in social work. She has family history of dementia in maternal aunt, and both paternal grandparents. Both her parents passed in early 60s. She has history of heavy alcohol use, stopped in 11/2017. She has a 20+ year history of tremors in her hands that had slowly gotten worse beginning around 2019 and were causing some functional impairment in eating, typing, and writing. There is no family history of tremor. If she is really worked up and nervous it is worse. She has some mild movements and trouble getting words out. Her symptoms increase with stress and caffeine. She has stopped all caffeine intake. She sleeps about 7 hours a day. Around 2016, she was seen in [place] and prescribed propranolol for a short period of time, dose unknown but, did not see any benefit. [facility] Medical History (Updated 06/15/25 @ 13:51 by Erinn Mehta CNP) Fibromyalgia Hypothyroidism PTSD (post-traumatic stress disorder) Depression Anxiety Benign essential tremor Family History (Updated 06/15/25 @ 13:52 by Erinn Mehta CNP) Maternal Aunt Dementia Paternal Grandfather Dementia Paternal Grandmother Dementia Review of Systems Const Denies chills, Denies daytime sleepiness, Denies difficulty sleeping, Denies fatigue, Denies fever(s), Denies frequent falls, Reports headache(s), Denies increased appetite, Denies poor appetite, Denies snoring, Denies weakness, Denies weight gain and Denies weight loss Eyes Denies loss of vision ENT Denies vertigo, Denies dizziness, Reports headache(s) and Denies neck pain Card Denies chest pain at rest, Denies chest pain with activity, Denies syncope, Denies leg edema, Reports palpitations, Denies dyspnea and Denies dyspnea on exertion Resp Denies cough, Denies dyspnea, Denies dyspnea on exertion and Denies snoring GI Denies abdominal pain, Denies constipation, Reports heartburn, Denies diarrhea and Denies nausea Denies urinary frequency, Denies urinary incontinence and Denies urinary urgency Musc Denies abnormal gait, Denies back pain, Denies myalgias, Denies arthralgias, Denies neck pain, Denies numbness and Denies tingling Neuro Denies abnormal gait, Denies vertigo, Denies dizziness, Denies syncope, Denies frequent falls, Reports headache(s), Denies lack of coordination, Denies loss of vision, Denies memory loss, Denies numbness, Denies Other visual disturbances, Denies restless legs, Denies seizure-like activity, Denies tingling, Denies paresthesias, Reports tremor(s) and Denies weakness Psych Reports anxiety, Denies depression, Denies auditory hallucinations, Denies memory loss and Denies visual hallucinations Endo Denies fatigue and Reports palpitations Physical Exam Const Other: General Appearance:? normal, in no acute distress. Psych:? alert, cooperative with exam. Neuro Other: Abnormal Neurological Findings:?MMSE 29/30, MoCA 23/30 with MIS 9/15 - Minimal tremor of the extended upper extremities mildly increased on FTN. Mental Status: alert. Cranial Nerves: Pupils are equal, round, and reactive to light. External ocular muscles are intact. Visual reece are full, no ptosis. Face is symmetrical, no facial weakness or droop. Facial sensations are normal. Tongue protrudes in midline. Palate elevates symmetrically. Shoulder shrugging is normal Coordination: No ataxia. No titubation. Gait Exam: Within normal limits. Cerebellar Signs: [id number] as above. Extrapyramidal System: Tremor as above. No rigidity with normal facial expressions. No bradykinesia. No bradyphrenia. Normal arm swing and posture. No propulsion or retropulsion. Speech: Normal. Results Reviewed Results Reviewed: Laboratory Tests 06/15/25 14:41 Vitamin B12 457 Folate 17.8 TSH 0.25 L Free T4 0.97 Amyloid Score (APS2) Pending Abeta42/40 Ratio Pending Labs 05/2025 with PCP: TSH 0.32, RPR negative Labs 04/2025 with PCP: Vitamin B 12 and folate ok Assessment & Plan Assessment & Plan (1) Benign essential tremor: Code(s): G25.0 - Essential tremor Category: Medical Plan: Continue primidone 50mg 1 tablet twice a day. (2) MCI (mild cognitive impairment): Code(s): G31.84 - Mild cognitive impairment of uncertain or unknown etiology Category: Medical Plan: Lab results reviewed - TSH low and results forwarded to PCP, ABeta 42/40 pending. EEG scheduled for 07/28/2025. She did not have appointment scheduled for MRI yet. Follow up after testing or sooner as needed. Coding Level of Care Code Est Pt Level 4 (63148) Diagnoses Benign essential tremor G25.0 MCI (mild cognitive impairment) G31.84
--- OUTSIDE RECORDS SUMMARY | 2025-06-19 18:27 | XMS_ITS | Encounter Summary ---
Author Organization [employer] Address [address] [facility] 7t [place] [address] Care Team Providers Care Fleet Maintenance Manager Name Role Phone SarmientoMyrna dseai LEASING SPECIALIST Unavailable [phone] Juan M Haynes Primary Care Provider [phone] Encounter Details Date Type Department Care Team (Late st Contact Info) Description 11/25/2024 Orders Only [facility] [address] [place] [address] Provider, Not In System Social History Tobacco [...] the past 12 months, has t he [employer], gas, oil or water [employer] threatened to shut off services in your [...] 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
--- OUTSIDE RECORDS SUMMARY | 2025-06-19 18:27 | XMS_ITS | Encounter Summary ---
Author Organization [employer] Address [address] [facility] 7t [place] [address] Care Team Providers Care Turning Machine Operator Name Role Phone SarmientoMyrna desai GEAR HOBBER SET UP OPERATOR Unavailable [phone] Juan M Haynes Primary Care Provider [phone] Reason for Visit * Reason Comments Med Refill Encounter Details Date Type Department Care Team ([facility] Contact Info) Description 12/24/2024 Refill [facility] [address] [place] [phone] Laureen Perez NP [address] [place], [place] [phone] Anxiety Social History Tobacco Use Types Packs/Day [...] 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
--- OUTSIDE RECORDS SUMMARY | 2025-06-19 18:27 | XMS_ITS | Encounter Summary ---
Author Organization [email or web address] Address [address] [facility] 7t [place] [address] Care Team Providers Care Sales Team Recruiter Name Role Phone SarmientoMyrna desai FREEZER OPERATOR Unavailable [phone] Juan M Haynes Primary Care Provider [phone] Encounter Details Date Type Department Care Team (Late st Contact Info) Description 10/28/2024 Orders Only [facility] [address] [place] [address] Provider, Not In System Social History Tobacco [...] the past 12 months, has t he [employer] gas, oil or water [employer] threatened to shut off services in your [...] 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 Not on file Not [...] (Benign) Lay letter mailed to patient WSN: [id number] Ordering Physician: Juan M Haynes Dictated By: Jessica Bernard MD Dictated Date/Time: 11/24/24 5:38 pm Reviewed By: Jessica Bernard MD Signed By: Jessica Bernard MD Signed Date/Time: 11/24/24 5:38 pm Transcribed By: JEANNINE Escrow Agent Date/Time: 11/24/24 5:35 pm Birads: Procedure Note [...] (Benign) Lay letter mailed to patient WSN: [id number] Ordering Physician: Juan M Haynes Dictated By: Jessica Bernard MD Dictated Date/Time: 11/24/24 5:38 pm Reviewed By: Jessica Bernard MD Signed By: Marco Antonio MD, Lopez Cassandra Signed Date/Time: 11/24/24 5:38 pm Transcribed By: CSB Escrow Agent Date/Time: 11/24/24 5:35 pm Birads: us Juan [...] documented as of this encounter Care Teams Sales Team Recruiter Relationship Specialty Start Date End Date Juan M Haynes PA [address] [place] [address] PCP - General Family Medicine 09/04/22 Myrna Sarmiento FNP [address] [place] [address] Family Medicine 05/05/22 documented as of this encounter
--- OUTSIDE RECORDS SUMMARY | 2025-06-19 18:27 | XMS_ITS | Clinical Summary ---
Author Organization [facility] Address [facility] [place] [address] Care Team Providers Care Order Caller Name Role Phone Unknown Primary Care Provider [...] Adult (Engerix-B , Recombivax) 04/01/1997,10/28/1996,09/26/1996 Influenza (Novel Y3W9-84) Injectable 05/11/2009 Influenza Quadrivalent, Pres ervative Free [...] The films were also reviewed with the [employer] Computer Aided Detection System (Version 10.0). COMPARISON: None FINDINGS: The breasts are symmetric in size and are of predominately fatty density. I see no suspicious masses or microcalcifications to suggest malignancy. us Brook Monahan MD IMG MAMMO ORDERABLES Final Res ult * (ABNORMAL) CMP (Lucia conversion) (08/04/2016 3:57 PM EST) Est Glomerular Filtration Rate >60(Exte rnal Lab) ml/min/1.73m2 [facility] Comment: Sourced from [facility] [place] Conversion Albumin 4.1(Exte rnal Lab) 3.5 - 5.2 g/dl [facility] Comment: Sourced from [facility] [place] Conversion Alkaline Phosphatase 66(Exter nal Lab) 35 - 104 international units per liter [facility] Comment: Sourced from [facility] Conversion Alanine Aminotransferase 17(Exter nal Lab) <33 international units per liter [facility] Comment: Sourced from [facility] [place] Conversion Aspartate Aminotransferase 17(Exter nal Lab) <32 international units per liter [facility] Comment: Sourced from [facility] [place] Conversion Blood Urea Nitrogen 20(Exter nal Lab) 6 - 20 mg/dl [facility] Comment: Sourced from [facility] Conversion Calcium 9.4(Exte rnal Lab) 8.6 - 10.2 mg/dl [facility] Comment: Sourced from [facility] [place] Conversion CKD Stage NL, 1or2(Ext ernal Lab) [facility] Comment: Sourced from [facility] [place] Conversion Chloride 98(Exter nal Lab) 98 - 107 mmol/L [facility] Comment: Sourced from [facility] [place] Conversion Carbon Dioxide 28(Exter nal Lab) 21 - 32 mmol/L [facility] Comment: Sourced from [facility] Conversion Creatinine 0.6(EXTE RNAL/ABN ) 0.7 - 1.2 mg/dl [facility] Comment: Sourced from [facility] [place] Conversion Anion Gap 14(Exter nal Lab) 8 - 16 mmol/L [facility] Comment: Sourced from [facility] Conversion Glucose Fasting 96(Exter nal Lab) 70 - 100 mg/dl [facility] Comment: Sourced from [facility] [place] Conversion Potassium 4.3(Exte rnal Lab) 3.3 - 5.1 mmol/L [facility] Comment: Sourced from [facility] [place] Conversion Sodium 140(Exte rnal Lab) 136 - 145 mmol/L [facility] Comment: Sourced from [facility] Conversion Bilirubin, Total 0.2(Exte rnal Lab) <1.2 mg/dl [facility] Comment: Sourced from [facility] Conversion Protein, Total 6.6(Exte rnal Lab) 6.6 - 8.7 g/dl [facility] Comment: Sourced from [facility] Conversion 08/04/2016 3:57 PM EST us His Nabial Provider CHEMISTRY ORDERABLES Final Result Performing Organization Address [facility] Co de Phone Number [facility] * (ABNORMAL) External Colonoscopy (09/20/2015 9:00 AM EDT) External Colonoscopy 09/20/2015 9:00:00 AM - See 5to1 system for full report(Externa l Lab) [facility] Comment:Sourced from [facility] [place] Conversion 09/20/2015 9:00 AM EDT us His Nabila Provider EXTERNAL GI PROCEDURE RESU LT Final Result Performing Organization Address [facility]/ZIP Co de Phone Number [facility] RES[facility] CON[facility] * (ABNORMAL) External Pap Smear (06/22/2015 2:22 PM EST) External PAP Smear 06/22/2015 2:22:00 PM; See 5to1 system for full report(Externa l Lab) [facility] Comment: Sourced from [facility] [place] Conversion 06/22/2015 2:22 PM EST us His Nabila Provider EXTERNAL LAB ORDERABLES Fi nal Result Performing Organization Address City/[facility]/ZIP Co de Phone Number [facility] RESULT CONVERSION from Last 3 Months or Most Recently Relevant to Health Maintenance Insurance [employer] Advance Directives Documents on File Type Date Recorded Patient Aviation Maintenance Instructor Expl anation Advance Directives and Livin g Will 09/29/2016 10:18 AM Advance Directives and Livin g Will 09/06/2010 4:06 PM Care Teams Order Caller Relationship Specialty Start Date End Date Unknown None PCP - General 05/10/22
--- OUTSIDE RECORDS SUMMARY | 2025-06-19 18:27 | XMS_ITS | Encounter Summary ---
Author Organization [employer] Address [address] [facility] 7 [place] [address] Care Team Providers Care Rocket Engine Component Mechanic Name Role Phone Myrna Sarmiento [facility] Unavailable [phone] Juan M Haynes Primary Care Provider [phone] Encounter Details Date Type Department Care Team ([facility] Contact Info) Description 02/27/2025 Telephone [facility] [address] [place] [address] Juan M Haynes PA [address] [place], [place] [id number] Social History Tobacco Use Types Packs/Day Years [...] 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
--- OUTSIDE RECORDS SUMMARY | 2025-06-19 18:28 | XMS_ITS | Encounter Summary ---
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 Not on file Not on file documented as of this encounter Plan of Treatment Not on file documented as of this encounter Procedures Procedure Name Priority Date/Time Associated Diagnosis Comments TSH AND FREE T4 Routine 06/17/2025 12:34 PM EST documented in this encounter Results * TSH and Free T4 (06/17/2025 12:34 PM EST) Blood Venous blood specimen / Unknown us Not In System Provider LAB BLOOD ORDERABLES Sharon l Result documented in this encounter Visit Diagnoses Not on filedocumented in this encounter Additional Health Concerns Assessment Noted Time PHQ-9 Depression Total Score: 4 12/06/19 24 2:09 PM EDT documented as of this encounter Care Teams Ocean Freight Manager Relationship Specialty Start Date End Date Juan M Haynes PA [address] [place] [address] PCP - General Family Medicine 09/04/22 Myrna Sarmiento FNP [address] [place] [address] Family Medicine 05/05/22 documented as of this encounter
--- OUTSIDE RECORDS SUMMARY | 2025-06-19 18:28 | XMS_ITS | Encounter Summary ---
Author Organization [employer] Address 75 [facility] 7t [place] [address] Care Team Providers Care Stake Setter Name Role Phone SarmientoMyrna desai TOWER CRANE OPERATOR Unavailable [phone] Juan M Haynes Primary Care Provider [phone] Reason for Visit * Reason Comments Med Change Request Encounter Details Date Type Department Care Team ([facility] Contact Info) Description 05/06/2025 Refill [facility] [address] [place] [address] Laureen Perez NP [address] [place], [place] [address] Social History Tobacco Use Types Packs/Day Years [...] 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
--- OUTSIDE RECORDS SUMMARY | 2025-06-19 18:28 | XMS_ITS | Clinical Summary ---
Author Organization [employer] Address [address] [facility] 7t [place] [address] Care Team Providers Care Train Electronic Technician Name Role Phone Myrna Sarmiento TRAIN OPERATIONS SUPERVISOR Unavailable [phone] Juan M Haynes Primary Care Provider [phone] Allergies Active Allergy Reactions Criticality Noted Date [...] 3 Refills, Maintenance, 04/15/25 4:48:00 PM EDT, [facility]/pharmacy #[id number], Partial fill upon patient request if the [...] needed. Malabsorption syndrome 2017 Overview (09/04/2022): S/p jeermy-en-y gastric bypass in 2000 Assessment & Plan [...] Encounters Date Type Department Care Team Description 06/18/2025 Orders Only [facility] Information Management [address] [place] [address] Provider, Not In System 06/13/[address] [phone] Uyen Tolbert FNP Anxiety 06/01/[address] [phone] Juan M Haynes PA 05/29/2025 2:40 PM EST Clinical Support [address] [address] Valerie Queen LPN Short-term memory loss (Primary Dx); Encounter for screening and preventative care [Z00.00] 05/29/2025 Results Follow-Up [address] [phone] Juan M Haynes PA TSH with Reflex to Free T4, HIV-1/2 Antigen and Antibodies, Fourth Generation, with Reflexes, RPR (Monitor) with Reflex to Titer, T4, Free 05/25/2025 3:40 PM EST Office Visit [address] [phone] Juan M Haynes PA Fibromyalgia (Primary Dx); Hypothyroidism, unspecified type; Encntr screen for infections w sexl mode of transmiss; Short-term memory loss 05/13/2025 3:40 PM EST Office Visit [address] [address] Micheline Zarate FNP Cutaneous abscess of buttock (Primary Dx) 05/13/[address] [address] Juan M Haynes PA 05/06/[address] [phone] Laureen Perez NP 05/05/[address] [address] Adi Kelley AGNP 05/05/[address] [address] Uyen Tolbert FNP Anxiety 04/17/2025 Results Follow-Up [address] [phone] Adi Kelley AGNP Iron, TIBC And Ferritin Panel, Comprehensive Metabolic Panel, CBC, Additional followed-up results: 2 03/27/2025 4:00 PM EDT Office Visit [address] [phone] Juan M Haynes PA Annual physical exam (Primary Dx); PATEL (obstructive sleep apnea); Iron deficiency; Fibromyalgia; Gastroesophageal reflux disease without esophagitis; Hypothyroidism, unspecified type; Anxiety; Encounter for immunization; Encounter for long-term (current) use of medications 03/27/[address] [phone] Juan M Haynes PA Gastroesophageal reflux disease without esophagitis from Last 3 Months Immunizations Immunization Administration Dates Next Due Hep B, Unspecified 04/01/1997,10/28/1996, 997 Influenza, IIV3, injectable 04/29/2023 Influenza, Unspecified 03/29/2019,2017,04/27/2017,2014,05/09/2014,04/08/2013,04/20/2011,0 03/23/2010,03/23/2009,05/12/2002 Influenza, seasonal, injecta ble, preservative free 03/27/2025,03/21/2024 Moderna Covid-19 Vaccine 12+ 03/27/2025,03/21/20,1962 Novel [id number], all formulations 05/11/2009 PPD Test 03/09/1997 Pfizer [...] the past 12 months, has t he [employer], gas, oil or water [employer] 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 [...] topic Meningococcal Vaccine Aged Out No lan andzrej eligible based on patient's age to complete this topic RSV under 20 months Aged Out No longe r eligible based on patient's age to complete this topic Rotavirus Vaccines Aged Out No longer eligible based on patient's age to complete this topic Procedures Procedure Name Priority Date/Time Associated Diagnosis Comments TSH AND FREE T4 Routine 06/17/2025 12:34 PM EST AMB REFERRAL TO NEUROLOGY Routine 06/15/2025 Short-term memory loss T4, FREE Routine 05/25/2025 4:18 PM EST [...] Relevant to Health Maintenance Results * TSH and Free T4 (06/17/2025 12:34 PM EST) Blood Venous blood specimen / Unknown us Not In System Provider LAB BLOOD ORDERABLES Sharon l Result * Referral to Neurology (06/15/2025) us Juan M MORRISON OUTPATIENT REFERRAL ORDERABLES F inal Result * (ABNORMAL) TSH with Reflex to Free T4 (05/25/2025 4:18 PM EST) Pathologist [facility] TSH w/Reflex to FT4 0.32(L) 0.40 - 4.50 mIU/L [employer] [facility] [employer] [place] [employer] Blood Venous blood specimen / Unknown 05/25/2025 4:18 PM EST 05/25/2025 4:18 PM EST Narrative [facility] - 05/26/2025 7:46 PM EST FASTING:NO FASTING: NO Juan M MORRISON LAB BLOOD ORDERABLES Final Resul t Performing Organization Address [facility] [place]/ZIP Co de Phone Number [employer] [address] [place] [phone] [facility] [employer] [place] [employer] [address] [place] [phone] * RPR (Monitor) with Reflex to??Titer (05/25/2025 4:18 PM EST) Pathologist [facility] RPR (Monitor) w/Refl Titer NON-REACT CORY NON-REACT CORY [employer] [facility] [employer] [place] [employer] Blood Venous blood specimen / Unknown 05/25/2025 4:18 PM EST 05/25/2025 4:18 PM EST Narrative [facility] - 05/26/2025 7:46 PM EST FASTING:NO FASTING: NO Juan M MORRISON LAB BLOOD ORDERABLES Final Resul t Performing Organization Address City/[facility] [place]/ZIP Co de Phone Number [facility] [address] [place] [phone] [facility] [employer] [place] [employer] [address] [place] [phone] * HIV-1/2 Antigen and Antibodies, Fourth Generation, with Reflexes (05/25/2025 4:18 PM EST) Pathologist [facility] HIV Final Interpretation HIV NEGATIVE [employer] [facility] [employer] [place] [employer] Comment: HIV-1 antigen and HIV-1/HIV-2 antibodies were not detected. There is no laboratory evidence of HIV infection. HIV Antigen/Antibody, 4th Generation NON-REACTIV E NON-REAC TIVE [facility] [place] [employer] [facility] Blood Venous blood specimen / Unknown 05/25/2025 4:18 PM EST 05/25/2025 4:18 PM EST Narrative [facility] - 05/26/2025 7:46 PM EST FASTING:NO FASTING: NO Juan M MORRISON LAB BLOOD ORDERABLES Final Resul t Performing Organization Address [facility] [place]/[facility] Co de Phone Number [facility] [address] [place] [phone] [facility] [employer] [place] [employer] [facility] [address] [place] [address] * T4, Free (05/25/2025 4:18 PM EST) Pathologist [facility] T4, Free 1.5 0.8 - 1.8 ng/dL [employer] [facility] [employer] [place] [employer] 05/25/2025 4:18 PM EST 05/25/2025 4:18 PM EST Narrative [facility] - 05/26/2025 7:46 PM EST FASTING:NO FASTING: NO Juan M MORRISON LAB BLOOD ORDERABLES Final Resul t Performing Organization Address [facility] [place]/[facility] de Phone Number [address] [phone] [facility] [employer] [place] [employer] [facility] [address] [place] [phone] * (ABNORMAL) Iron, TIBC And Ferritin Panel (04/14/2025 8:47 AM EDT) Iron, Total 32(L) 45 - 160 mcg/dL [facility] [employer] [facility] Iron Binding Capacity 233(L) 250 - 450 mcg/dL (calc) [facility] [employer] % Saturation 14(L) 16 - 45 % (calc) [facility] [place] [employer] [facility] Ferritin 124 16 - 288 ng/mL [facility] [place] [employer] Blood 04/14/2025 8:47 AM EDT 04/14/2025 8:48 AM EDT Narrative [facility] - 04/15/2025 8:25 AM EDT FASTING:NO FASTING: NO Adi November [facility] LAB BLOOD ORDERABLES Final Resul t [facility] Brian [facility], [address] [place] [address] [employer] [place] [employer] [address] [place] [address] * (ABNORMAL) CBC (04/14/2025 8:47 AM EDT) Pathologist [facility] White Blood Cell Count 7.6 3.8 - 10.8 Thousand/ uL [facility] [employer] [facility] [employer] [place] [employer] Red Blood Cell Count 4.62 3.80 - 5.10 Million/u L [employer] [facility] [employer] [place] [employer] Hemoglobin 13.1 11.7 - 15.5 g/dL [facility] Hematocrit 42.0 35.0 - 45.0 % [employer] [facility] [employer] [place] [employer] MCV 90.9 80.0 - 100.0 fL [facility] [place] [employer] MCH 28.4 27.0 - 33.0 pg [employer] [facility] [employer] [place] [employer] MCHC 31.2(L) 32.0 - 36.0 g/dL [employer] [facility] [employer] [place] [employer] Comment: For adults, a slight decrease in the calculated MCHC value (in the range of 30 to 32 g/dL) is most likely not clinically significant; however, it should be interpreted with caution in correlation with other red cell parameters and the patient's clinical condition. RDW 13.2 11.0 - 15.0 % [employer] [facility] [employer] [place] [employer] Platelet Count 269 140 - 400 Thousand/ uL [facility] [place] [employer] [facility] MPV 10.2 7.5 - 12.5 fL [facility] [employer] [place] [employer] [facility] Blood Venous blood specimen / Unknown 04/14/2025 8:47 AM EDT 04/14/2025 8:48 AM EDT Narrative [facility] - 04/15/2025 8:25 AM EDT FASTING:NO FASTING: NO Adi May AGN LAB BLOOD ORDERABLES Final Resul t [facility] [address], [facility] [place] [address] [employer] [place] [employer] [address] [place] [address] * Folate, Serum (04/14/2025 8:47 AM EDT) Pathologist [facility] Folate, Serum >24.0 ng/mL [employer] [facility] [employer] [place] [employer] Comment: Reference Range Low: <3.4 Borderline: 3.4-5.4 Normal: >5.4 Blood Venous blood specimen / Unknown 04/14/2025 8:47 AM EDT 04/14/2025 8:48 AM EDT Narrative [facility] - 04/15/2025 8:25 AM EDT FASTING:NO FASTING: NO November AGNP LAB BLOOD ORDERABLES Final Resul t Performing Organization Address [facility] [place]/ZIP Co de Phone Number [facility] [address] [place] [address], [facility] [place] [address] [facility] [place] [employer] [address] [place] [address] * Vitamin B12 (04/14/2025 8:47 AM EDT) [facility] Vitamin B12 681 200 - 1,100 pg/mL [employer] [place] [employer] Blood Venous blood specimen / Unknown 04/14/2025 8:47 AM EDT 04/14/2025 8:48 AM EDT Narrative [facility] - 04/15/2025 8:25 AM EDT FASTING:NO FASTING: NO [facility] [place] AGNP LAB BLOOD ORDERABLES Final Resul t Performing Organization Address [facility] [place]/[facility] Co de Phone Number [address], [place] [address] [employer] [facility] [employer] [place] [employer] [address] [place] [phone] * (ABNORMAL) Comprehensive Metabolic Panel (04/14/2025 8:47 AM EDT) [facility] Glucose 120 65 - 139 mg/dL [facility] [place] [facility] Comment: Non-fasting reference interval Urea Nitrogen (BUN) 12 7 - 25 mg/dL [facility] Creatinine, Serum 0.77 0.50 - 1.05 mg/dL [facility] eGFR 87 > OR = 60 mL/min/1. 73m2 [facility] BUN/Creatinine Ratio SEE NOTE: 6 - 22 (calc) [facility] Comment: Not Reported: BUN and Creatinine are within reference range. Sodium 140 135 - 146 mmol/L [facility] Potassium 4.5 3.5 - 5.3 mmol/L [facility] Chloride 103 98 - 110 mmol/L [facility] [employer] Carbon Dioxide 30 20 - 32 mmol/L [facility] [place] [employer] Calcium 9.1 8.6 - 10.4 mg/dL [facility] [place] [employer] Protein, Total 5.9(L) 6.1 - 8.1 g/dL [facility] [employer] Albumin 3.6 3.6 - 5.1 g/dL [facility] [place] [facility] Globulin 2.3 1.9 - 3.7 g/dL (calc) [facility] [place] [employer] Albumin/Globuli n Ratio 1.6 1.0 - 2.5 (calc) [facility] [place] [employer] Bilirubin, Total 0.2 0.2 - 1.2 mg/dL [facility] [place] [employer] Alkaline Phosphatase 69 37 - 153 U/L [facility] [employer] AST 13 10 - 35 U/L [facility] [employer] ALT 10 6 - 29 U/L [facility] [place] [employer] Blood Venous blood specimen / Unknown 04/14/2025 8:47 AM EDT 04/14/2025 8:48 AM EDT Narrative [facility] - 04/15/2025 8:25 AM EDT FASTING:NO FASTING: NO us Adi May AGNP LAB BLOOD ORDERABLES Final Resul t [facility] [address], [place] [address] [employer] [facility] [address] [place] [address] * (ABNORMAL) Drug Toxicology Monitoring 1, with Confirmation, Oral Fluid (03/27/2025 4:38 PM EDT) [facility] Amphetamines NEGATIVE <10 ng/mL [facility] [place] [facility] Barbiturates POSITIVE(A) <10 ng/mL [facility] Amobarbital Negative <10 ng/mL [facility] Butalbital Negative <10 ng/mL [facility] Pentobarbital Negative <10 ng/mL [facility] Phenobarbital 173(H) <10 ng/mL [facility] Secobarbital Negative <10 ng/mL [facility] Benzodiazepines NEGATIVE <0.50 ng/mL [facility] Buprenorphine, Oral Fluid NEGATIVE <0.10 ng/mL [facility] Cocaine, oral fluid NEGATIVE <5.0 ng/mL [facility] Fentanyl NEGATIVE <0.10 ng/mL [facility] Heroin Metabolite NEGATIVE <1.0 ng/mL [facility] Marijuana, oral fluid NEGATIVE <2.5 ng/mL [facility] MDMA Screen, Oral Fluid NEGATIVE <10 ng/mL [facility] Meprobamate NEGATIVE <2.5 ng/mL [facility] Methadone, Oral Fluid NEGATIVE <5.0 ng/mL [facility] Nicotine Metabolite POSITIVE(A) <5.0 ng/mL [facility] Cotinine 114.5(H) <5.0 ng/mL [facility] Comment: Cotinine is a metabolite of nicotine. Opiates, oral fluid NEGATIVE <2.5 ng/mL [facility] Phencyclidine, oral fluid NEGATIVE <10 ng/mL [facility] Tapentadol NEGATIVE <5.0 ng/mL [facility] Tramadol, Oral Fluid NEGATIVE <5.0 ng/mL [facility] Zolpidem NEGATIVE <5.0 ng/mL [facility] Comment: For additional information, please refer to http://education.[employer]/faq/KQL516 (This link is being provided for informational/ educational purposes only.) This drug testing is for medical treatment only. Analysis was performed as non-forensic testing and these results should be used only by healthcare providers to render diagnosis or treatment, or to monitor progress of medical conditions. For assistance with interpreting these drug results, please contact a [employer] Toxicology Specialist: [phone] ( ), M-F, 8am-6pm EST. These tests were developed and their analytical performance characteristics have been determined by [employer]. They have not been cleared or approved by the FDA. These assays have been validated pursuant to the CLIA regulations and are used for clinical purposes. Oral Fluid 03/27/2025 4:38 PM EDT 03/27/2025 4:39 PM EDT Juan M MORRISON LAB BODY FLUIDS AND STOOLS ORDER MAX Final Result [facility] [address], [place] [address] [facility] [employer] [facility] [address] [facility] RYAN Graham [phone] * BI Mammogram Screening Tomosynthesis Bilateral (11/21/2024 [...] (Benign) Lay letter mailed to patient WSN: [id number] Ordering Physician: Juan M Haynes Dictated By: Jessica Bernard MD Dictated Date/Time: 11/24/24 5:38 pm Reviewed By: Jessica Bernard MD Signed By: Jessica Bernard MD Signed Date/Time: 11/24/24 5:38 pm Transcribed By: [employer] Social Corporate Security Officer Date/Time: 11/24/24 5:35 pm Birads: Procedure Note Hansater, Image - 11/24/2024 PROCEDURE: MM Digital Mammo [...] (Benign) Lay letter mailed to patient WSN: [id number] Ordering Physician: JuanM Haynes Dictated By: Jessica Bernard MD Dictated Date/Time: 11/24/24 5:38 pm Reviewed By: Jessica Bernard MD Signed By: Jessica Bernard MD Signed Date/Time: 11/24/24 5:38 pm Transcribed By: Argyle Social Corporate Security Officer Date/Time: 11/24/24 5:35 pm Birads: us Juan M Luthi PA IMG BI PROCEDURES Final Result * (ABNORMAL) Lipid [...] AM EDT Performed at: 01 - [facility] [address] [id number] Modeling Agent: Kisha Tavera MD, Phone: [phone] Juan M MORRISON LAB BLOOD ORDERABLES Final Resul t Performing Organization Address [facility]/State/ZIP Co de Phone Number [id number] 1 * Hepatitis C Antibody w/Reflex HCV Quant PCR (09/04/2022 3:59 PM EST) Pathologist [facility] Hepatitis C Virus Ab, Serum NEGATIVE (NEG) [facility] Comment: Reference range: Negative This test was performed on the [employer] Mixer Operator immunoassay system. Testing performed or reported by [facility], a Service of [facility], [facility] [place] [place] [address] Angel Rodrigues MD, Distillation Operator [facility]# [id number] 09/04/2022 3:59 PM EST 09/04/2022 4:00 PM EST Juan M MORRISON LAB BLOOD ORDERABLES Final Resul t [facility] [address] [place] [address] * HM PAP/HPV (05/25/2022) Only the most [...] Most Recently Relevant to Health Maintenance Insurance [facility] * Guarantor: Saniya Poole Account Type Relation to Patient Date of Phone Billing Address Personal/Family Self [place], [place] Care Teams Train Electronic Technician Relationship Specialty Start Date End Date Juan M Haynes PA [address] [place] [address] PCP - General Family Medicine 09/04/22 Myrna Sarmiento FNP [address] [place] [address] Family Medicine 05/05/22
--- OUTSIDE RECORDS SUMMARY | 2025-06-19 18:28 | XMS_ITS | Encounter Summary ---
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
--- OUTSIDE RECORDS SUMMARY | 2025-06-19 18:30 | XMS_ITS | Encounter Summary ---
Author Organization [facility] Address [address] [facility] [address] [place] [address] Phone Care Team Providers Care Supervisor Film Processing Name Role Phone Juan M Haynes Primary Care Provider [phone] Encounter Details Date Type Department Care Team (Late st Contact Info) Description 08/17/2024 Procedure Pass [facility] [address] [place] [address] Social History Tobacco Use Types Packs/Day Years [...] documented as of this encounter Care Teams Supervisor Film Processing Relationship Specialty Start Date End Date Juan M Haynes PA [address] [place] [address] PCP - General 08/16/24 documented as of this encounter Additional Source Comments The information contained in this document represents components of the legal health record. It is not the complete legal health record.[facility]
--- OUTSIDE RECORDS SUMMARY | 2025-06-19 18:30 | XMS_ITS | Encounter Summary ---
Author Organization [employer] Address [address] [facility] 7t [place] [address] Care Team Providers Care Product Safety And Standards Engineer Name Role Phone Myrna Sarmiento DESKTOP ENGINEER Unavailable [phone] Juan M Haynes Primary Care Provider [phone] Reason for Visit * Reason Comments Med Refill Encounter Details Date Type Department Care Team (Late st Contact Info) Description 04/30/2024 Refill [facility] [address] [place] [address] Yanira Steen FNP [address] [place] [address] Fibromyalgia Social History Tobacco Use Types Packs/Day [...] 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
--- OUTSIDE RECORDS SUMMARY | 2025-06-19 18:30 | XMS_ITS | Encounter Summary ---
Author Organization [employer] Address [address] [facility] 7 [place] [address] Care Team Providers Care Bond Analyst Name Role Phone Myrna Sarmiento [facility] Unavailable [phone] Juan M Haynes Primary Care Provider [phone] Encounter Details Date Type Department Care Team ([facility] Contact Info) Description 07/14/2024 Telephone [facility] [address] [place] [address] Juan M Haynes PA [address] [place], [place] [phone] Social History Tobacco Use Types Packs/Day Years [...] 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 Please call when ready to garbage pick up man or send it thru her [employer] portal. [phone] documented in this encounter Plan of Treatment Not on file documented as of this encounter Visit Diagnoses Not on filedocumented in this encounter Additional Health Concerns Assessment Noted Time PHQ-9 Depression Total Score: 4 12/06/19 24 2:09 PM EDT documented as of this encounter Care Teams Bond Analyst Relationship Specialty Start Date End Date Juan M Haynes PA [address] [place] [address] PCP - General Family Medicine 09/04/22 Myrna Sarmiento FNP [address] [place] [address] Family Medicine 05/05/22 documented as of this encounter
--- OUTSIDE RECORDS SUMMARY | 2025-06-19 18:30 | XMS_ITS | Encounter Summary ---
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
--- OUTSIDE RECORDS SUMMARY | 2025-06-19 18:30 | XMS_ITS | Encounter Summary ---
Author Organization [employer] Address [address] [facility] 7 [place] [address] Care Team Providers Care Electronics Detail Draftsperson Name Role Phone Myrna Sarmiento [facility] Unavailable [phone] Juan M Haynes Primary Care Provider [phone] Encounter Details Date Type Department Care Team ([facility] Contact Info) Description 06/12/2024 Telephone [facility] [address] [place] [address] Juan M Haynes PA [address] [place], [place] [phone] Social History Tobacco Use Types Packs/Day Years [...] has not heard from hematology/ please advise [phone] documented in this encounter Plan of Treatment Not on file documented as of this encounter Visit Diagnoses Not on filedocumented in this encounter Additional Health Concerns Assessment Noted Time PHQ-9 Depression Total Score: 4 12/06/19 24 2:09 PM EDT documented as of this encounter Care Teams Electronics Detail Draftsperson Relationship Specialty Start Date End Date Juan M Haynes PA [address] [place] [address] PCP - General Family Medicine 09/04/22 Myrna Sarmiento FNP [address] [place] [address] Family Medicine 05/05/22 documented as of this encounter
--- OUTSIDE RECORDS SUMMARY | 2025-06-19 18:30 | XMS_ITS | Encounter Summary ---
Author Organization [facility] Address [address] [facility] [address] [place] [address] Phone Care Team Providers Care Loss Prevention Agent Name Role Phone Juan M Haynes Primary Care Provider [phone] Encounter Details Date Type Department Care Team (Late st Contact Info) Description 08/16/2024 Procedure Pass [facility], Ct Scan - [address] [address] Social History Tobacco Use Types Packs/Day Years [...] 08/16/2024 8:29 PM Cinthya Giles RN * [place] Suicide Severity Rating Scale (Screener/Recent Self-Report) Question [...] documented as of this encounter Care Teams Loss Prevention Agent Relationship Specialty Start Date End Date Juan M Haynes PA [address] [place] [address] PCP - General 08/16/24 documented as of this encounter Additional Source Comments The information contained in this document represents components of the legal health record. It is not the complete legal health record.[facility]
--- OUTSIDE RECORDS SUMMARY | 2025-06-19 18:30 | XMS_ITS | Encounter Summary ---
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
--- OUTSIDE RECORDS SUMMARY | 2025-06-19 18:30 | XMS_ITS | Clinical Summary ---
Author Organization [facility] Address [address] [place] [address] Care Team Providers Care Shipboard Intelligence Analyst Name Role Phone Juan M Haynes Primary Care Provider [phone] Allergies Active Allergy Reactions Criticality Noted Date [...] Screening Completed 07/18/2019 Insurance [employer] Care Teams Shipboard Intelligence Analyst Relationship Specialty Start Date End Date Juan M Haynes PA PCP - General 12/07/23
--- OUTSIDE RECORDS SUMMARY | 2025-06-19 18:30 | XMS_ITS | Encounter Summary ---
Author Organization [facility] Address [address] [place] [address] [place] [address] Phone Care Team Providers Care Exchange Administrator Name Role Phone Cira Renteria MD Primary Care Provider [phone] Juan M Haynes Primary Care Provider [phone] Encounter Details Date Type Department Care Team (Late st Contact Info) Description 09/26/2018 Procedure Pass [facility] Admitting Dept Virtual Department [address] [place] [address] Social History Tobacco Use Types Packs/Day Years [...] documented as of this encounter Care Teams Exchange Administrator Relationship Specialty Start Date End Date Cira Renteria MD [email or web address] PCP - General Family Medicine 09/16/18 08/15/24 Juan M Haynes PA [address] [place] [address] PCP - General 08/16/24 documented as of this encounter Additional Source Comments The information contained in this document represents components of the legal health record. It is not the complete legal health record.[facility]
--- OUTSIDE RECORDS SUMMARY | 2025-06-19 18:30 | XMS_ITS | Encounter Summary ---
Author Organization [employer] Address [address] [facility] 7 [place] [address] Care Team Providers Care Die Try Out Worker Stamping Name Role Phone Myrna Sarmiento BLOG WRITER Unavailable [phone] Juan M Haynes Primary Care Provider [phone] Reason for Visit * Reason Onset Date Comments Med Refill 02/09/2023 Encounter Details Date Type Department Care Team (Late st Contact Info) Description 02/09/[address] 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
--- OUTSIDE RECORDS SUMMARY | 2025-06-19 18:30 | XMS_ITS | Clinical Summary ---
Author Organization [facility] Address [address] [address] Phone Care Team Providers Care Group Managing Director Name Role Phone Juan M Haynes Primary Care Provider [phone] Allergies Active Allergy Reactions Criticality Noted Date [...] Office Visit [facility] at [address] [address] Mickey Grady PA-C Cellulitis of left upper [...] EST) TSH 0.74 0.27 - 4.20 uIU/mL [facility] Blood 08/17/2024 4:52 AM EST 08/17/2024 5:19 AM EST us Radu Hopperpson DO LAB BLOOD BKR ORDERABLES Sharon spangler Result [facility] [address] [place] [address] * ENDOSCOPY, COLON (09/26/2018 12:43 PM EDT) Narrative Transcriptions Ric Bennett MD - 09/26/2018 12:43 PM EDT Patient Name: Saniyalorie Poole Attending MD:: RIC BENNETT MD, Procedure Date: 09/26/2018 12:43 PM Date of : 1960 Age: 58 Admit Type: Outpatient Gender: Female Room: [facility] Referring MD: Cira Renteria Exam Type: Colonoscopy [...] monitored continuously. The Olympus adult variable colonoscope [id number] #3 was introduced through the anus and advanced to the cecum, identified by appendiceal orifice and ileocecal valve.The colonoscopy was performed without difficulty. Thepatient tolerated the procedure well. The quality of the bowel preparation was good. The quality of the bowelpreparation was evaluated using the BBPS (Moody Bowel Preparation Scale) with scores of: Right [...] 12:43 PM Procedure Code(s): --- Professional --- 60529, Colonoscopy, flexible; diagnostic, including collection of specimen(s) by brushing or washing, when performed (separateprocedure) --- Technical --- 72030, Colonoscopy, flexible; diagnostic, including collection of specimen(s) by brushing or washing, when performed (separateprocedure) Diagnosis Code(s): --- Professional --- Z86.010, Personal history of colonic polyps K64.8, Other hemorrhoids --- Technical --- Z86.010, Personal history of colonic polyps K64.8, Other hemorrhoids CPT copyright 2016 [employer]. All rights reserved. The codes documented in this report are preliminary and upon aviation technician reviewmay be revised to meet current compliance requirements. [address] [place] [address] Cira Renteria MD GI PROCEDURE ORDERABLES Final Result from Last 3 Months or Most Recently Relevant to Health Maintenance Insurance [place] WELL[place] NON NSPG PCP SILVER CLARITY CONNECTORCARE [place] WELL[place] NON NSPG PCP SILVER [employer]ITY CONNECTORCARE [place] NON NSPG PCP SILVER CLARITY CONNECTORCARE [place] WELLSENSE NON NSPG PCP S[place]VER CL[place]ITY CONNECTORCARE [place] POS PCP [place] CONNECTORCARE [place] WELL[place]ENSE NON NSPG PCP [place] CONNECTORCARE Advance Directives For more information, please contact: [phone] (9AM - 5PM Pam/[facility], Sunday-Sunday) Documents on File Type Date Recorded Patient Collar Padder Blindstitch Expl anation Healthcare Proxy 08/19/2024 4:46 PM * Full Code (Latest Code Status on File) Date Activated Date Inactivated Comments 08/17/2024 1:21 AM Question Answer Comments Code Status Confirmed With: Patient Care Teams Group Managing Director Relationship Specialty Start Date End Date Juan M Haynes PA [address] [place] [address] PCP - General 08/16/24 Additional Source Comments The information contained in this document represents components of the legal health record. It is not the complete legal health record.[facility]
--- OUTSIDE RECORDS SUMMARY | 2025-06-19 18:30 | XMS_ITS | Encounter Summary ---
Author Organization [employer] Address [address] 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
--- OUTSIDE RECORDS SUMMARY | 2025-06-19 18:30 | XMS_ITS | Encounter Summary ---
Author Organization [employer] Address [address] [facility] 7t [place] [address] Care Team Providers Care Residential Real Estate Sales Manager Name Role Phone Myrna Sarmiento NURSE CONSULTANT Unavailable [phone] Juan M Haynes Primary Care Provider [phone] Reason for Visit * Reason Onset Date Comments Med Refill 03/25/2024 Encounter Details Date Type Department Care Team (Late st Contact Info) Description 03/25/2024 Refill [facility] [address] [place] [address] Yanira Steen FNP [address] [place], [place] [phone] Social History Tobacco Use Types Packs/Day Years [...] 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
--- OUTSIDE RECORDS SUMMARY | 2025-06-19 18:30 | XMS_ITS | Encounter Summary ---
Author Organization [employer] Address [address] [facility] 7 [place] [address] Care Team Providers Care Wind Turbine Controls Engineer Name Role Phone Myrna Sarmiento TELEPHOTO ENGINEER Unavailable [phone] Juan M Haynes Primary Care Provider [phone] Reason for Visit * Reason Comments Med Refill Encounter Details Date Type Department Care Team ([facility] Contact Info) Description 04/15/[address] 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
== END 2025-06-19 13:32 | disposition home or self-care (01) ==
LOC: HO.HSM 12:50
PROVIDERS: PCP Physician Assistant Medical; Visit Provider Registered Nurse
DX: G25.0 Essential tremor (principal); G31.84 Mild cognitive impairment of uncertain or unknown etiology
CPT/HCPCS: 99214

== ENCOUNTER → 2025-06-19 12:50 | Outpatient (BNVA) | payer OTHER, SELFPAY | PROVIDERS: PCP Physician Assistant Medical; Visit Provider Registered Nurse | DX: G25.0 Essential tremor (principal); G31.84 Mild cognitive impairment of uncertain or unknown etiology; Z79.899 Other long term (current) drug therapy | CPT/HCPCS: 99212 ==